=== PATIENT | female | born 1935 | race Caucasian/White ===

== ENCOUNTER 2018-03-14 14:54 | Emergency (ER) | payer OTHER ==
--- NOTE | 2018-03-14 15:56 | RAD REPORT ---
EXAM DESCRIPTION: CT - CTHCSPWOC - 03/14/2018 3:42 pm CLINICAL HISTORY: Trauma, head and neck injury. SMASH INJURY COMPARISON: HEAD BRAIN W O CONTRAST dated 07/18/2014 TECHNIQUE: Axial 5 mm thick images of the head were obtained. Axial 2 mm thick images of the cervical spine were obtained with sagittal and coronal reconstruction images generated and reviewed. All CT scans are performed using dose optimization technique as appropriate and may include automated exposure control or mA/KV adjustment according to patient size. FINDINGS: CT HEAD WITHOUT CONTRAST: No acute hemorrhage, hydrocephalus or extra-axial collection is identified.No areas of brain edema or midline shift. Opacification of the sphenoid sinus and posterior ethmoid air cells noted compatible with chronic sin usitis.Significant opacification of the left maxillary antrum is also seen.The calvarium is intact. P osterior scalp hematoma. CT CERVICAL SPINE WITHOUT CONTRAST: No fracture or subluxation.Prominent hypertrophy at the C1-C2 articulation noted. Multilevel spondylo sis is present of the cervical spine with degenerative anterolisthesis of 3 mm at C2-3 and 4 mm noted at C3-4. Disc thinning with prominent osteophytosis in the lower cervical levels also seen.No prever tebral soft tissues swelling is identified. IMPRESSION: No acute intracranial or cervical spine findings. Significant cervical degenerative changes present. Moderate multifocal paranasal sinus opacification.
--- NOTE | 2018-03-14 16:11 | EDPHYS ---
Physician Documentation [facility] Name: Luz Hirsch Age: 83 yrs Sex: Female : 1935 Arrival Date: 03/14/2018 Time: 15:02 Bed 5 Private MD: ED Emanuel Carlos HPI: 03/14 15:30 This 83 yrs old Female presents to ER via Ambulatory with complaints of Fall snw Injury. 15:30 Details of fall: The patient fell from an upright position, while walking. Onset: The snw symptoms/episode began/occurred suddenly, just prior to arrival. Associated injuries: The patient sustained injury to the head, abrasion, contusion. Severity of symptoms: At their worst the symptoms were mild, moderate. The patient has experienced similar episodes in the past, multiple times. It is unknown whether or not the patient has recently seen a physician, sees Dr. Ho. Denies pain, nausea, vomiting. Historical: - Allergies: 15:06 No Known Allergies; hj - Home Meds: 15:06 tramadol 50 mg Oral tab 1 tab daily [Active]; carvedilol 6.25 mg oral tab 1 tab 2 times hj per day [Active]; levothyroxine 50 mcg tab 1 tab once daily [Active]; irbesartan 300 mg oral tab 1 tab once daily [Active]; amlodipine 5 mg tab 1 tab once daily [Active]; Osteo Bi-Flex 250-200 mg oral tab [Active]; 15:06 aspirin 81 mg Oral chew 1 tab every other day [Active]; hj - PMHx: 15:06 Hypertension; Hypothyroidism; hj - PSHx: 15:06 Left knee replacement; Appendectomy; Cholecystectomy; Tonsillectomy; hj - Immunization history:: Adult Immunizations up to date. - Social history:: Smoking status: Patient/guardian denies using tobacco, Patient/guardian denies using alcohol. - Immunization history: Last tetanus immunization: unknown. - Ebola Screening: : Patient negative for fever greater than or equal to 101.5 degrees Fahrenheit, and additional compatible Ebola Virus Disease symptoms Patient denies exposure to infectious person Patient denies travel to an Ebola-affected area in the 21 days before illness onset. ROS: 15:29 Constitutional: Negative for fever, chills, and weight loss, Eyes: Negative for injury, snw pain, redness, and discharge, ENT: Negative for injury, pain, and discharge, Neck: Negative for injury, pain, and swelling, Cardiovascular: Negative for chest pain, palpitations, and edema, Respiratory: Negative for shortness of breath, cough, wheezing, and pleuritic chest pain, Abdomen/GI: Negative for abdominal pain, nausea, vomiting, diarrhea, and constipation, Back: Negative for injury and pain, : Negative for injury, bleeding, discharge, and swelling, MS/Extremity: Negative for injury and deformity, Skin: Negative for injury, rash, and discoloration. 15:29 Neuro: Positive for mechanical fall/over curb. Struck occiput on concrete, no LOC, denies N/V. Exam: 15:27 Constitutional: This is a well developed, well nourished patient who is awake, alert, snw and in no acute distress. Head/Face: Normocephalic, large hematoma to left-central occiput, GCS 15 Eyes: Pupils equal round and reactive to light, extra-ocular motions intact. Lids and lashes normal. Conjunctiva and sclera are non-icteric and not injected. Cornea within normal limits. Periorbital areas with no swelling, redness, or edema. ENT: Nares patent. No nasal discharge, no septal abnormalities noted. Tympanic membranes are normal and external auditory canals are clear. Oropharynx with no redness, swelling, or masses, exudates, or evidence of obstruction, uvula midline. Mucous membranes moist. Neck: Trachea midline, no thyromegaly or masses palpated, and no cervical lymphadenopathy. Supple, full range of motion without nuchal rigidity, or vertebral point tenderness. No Meningismus. Chest/axilla: Normal chest wall appearance and motion. Nontender with no deformity. No lesions are appreciated. Cardiovascular: Regular rate and rhythm with a normal S1 and S2. No gallops, murmurs, or rubs. Normal PMI, no JVD. No pulse deficits. Respiratory: Lungs have equal breath sounds bilaterally, clear to auscultation and percussion. No rales, rhonchi or wheezes noted. No increased work of breathing, no retractions or nasal flaring. Abdomen/GI: Soft, non-tender, with normal bowel sounds. No distension or tympany. No guarding or rebound. No evidence of tenderness throughout. Back: No spinal tenderness. No costovertebral tenderness. Full range of motion. MS/ Extremity: Pulses equal, no cyanosis. Neurovascular intact. Full, normal range of motion. Neuro: Awake and alert, GCS 15, oriented to person, place, time, and situation. Cranial nerves II-XII grossly intact. Motor strength 5/5 in all extremities. Sensory grossly intact. Cerebellar exam normal. Normal gait. Psych: Awake, alert, with orientation to person, place and time. Behavior, mood, and affect are within normal limits. 15:27 Skin: Appearance: normal except for affected area, injury, abrasion(s), very small abrasion noted, of the right antecubital area. Vital Signs: 15:06 BP 166 / 71; Pulse 82; Resp 18; Temp 97.9(O); Pulse Ox 98% on R/A; Weight 68.04 kg; hj Height 5 ft. 4 in. (162.56 cm); Pain 0/10; 15:06 Body Mass Index 25.75 (68.04 kg, 162.56 cm) [place] Coma Score: 15:06 Eye Response: spontaneous(4). Verbal Response: oriented(5). Motor Response: obeys commands(6). Total: 15. Trauma Score (Adult): 15:06 Eye Response: spontaneous(1); Verbal Response: oriented(1); Motor Response: obeys hj commands(2); Systolic BP: > 89 mm Hg(4); Respiratory Rate: 10 to 29 per min(4); [place] Score: 15; Trauma Score: 12 MDM: 15:21 Patient medically screened. snw 16:11 Data reviewed: vital signs, nurses notes. Data interpreted: Pulse oximetry: on room air snw is 98 %. Interpretation: normal. Counseling: I had a detailed discussion with the patient and/or guardian regarding: the historical points, exam findings, and any diagnostic results supporting the discharge/admit diagnosis, the presence of at least one elevated blood pressure reading (>120/80) during this emergency department visit, radiology results, the need for outpatient follow up, to return to the emergency department if symptoms worsen or persist or if there are any questions or concerns that arise at home. Special discussion: Based on the patient's history, exam and DX evaluation, there is no indication for emergent intervention or inpatient TX. It is understood by the patient/guardian that if the SXs persist or worsen they need to return immediately for re-evaluation. Based on the history and exam findings, there is no indication for further emergent testing or inpatient evaluation. I discussed with the patient/guardian the need to see the primary care provider for further evaluation of the symptoms. 03/14 15:27 Order name: CT Head C Spine; Complete Time: 16:03 snw Administered Medications: No medications were administered Disposition: 03/15 06:47 Co-signature as Attending Physician, Emanuel Damico MD I agree with the assessment and bridgette plan of care. Disposition: 03/14/18 16:11 Discharged to Home. Impression: Fall on same level from slipping, tripping and stumbling, Superficial injury of head. - Condition is Stable. - Discharge Instructions: Head Injury, Adult, Hematoma, Fall Prevention and Home Safety. - Medication Reconciliation Form, Thank You Letter, Antibiotic Education, Prescription Opioid Use form. - Follow up: Private Physician; When: 2 - 3 days; Reason: Recheck today's complaints, Continuance of care, Re-evaluation by your physician. Follow up: Emergency Department; When: As needed; Reason: Worsening of condition. Signatures: Dispatcher [employer] EDMS Emanuel Damico MD MD cha Therrien, Shelly, MECHANICAL ENGINEERING MANAGER-C MECHANICAL ENGINEERING MANAGER-Csnw Mckenzie Clark, RN RN pt Robert Hernandez RN Gricelda Ruelas RN RN jl7 Corrections: (The following items were deleted from the chart) 03/14 15:20 15:06 Home Meds: aspirin 81 mg Oral chew 1 tab once daily; [facility] 15:35 15:32 Ebola Screening: Ebola risk identified: pt pt 16:19 16:11 03/14/2018 16:11 Discharged to Home. Impression: Fall on same level from jl7 slipping, tripping and stumbling; Superficial injury of head. Condition is Stable. Forms are Medication Reconciliation Form, Thank You Letter, Antibiotic Education, Prescription Opioid Use. Follow up: Private Physician; When: 2 - 3 days; Reason: Recheck today's complaints, Continuance of care, Re-evaluation by your physician. Follow up: Emergency Department; When: As needed; Reason: Worsening of condition. snw
--- NOTE | 2018-03-14 16:11 | ER ---
Nurse's Notes [facility] Name: Luz Hirsch Age: 83 yrs Sex: Female : 1935 Arrival Date: 03/14/2018 Time: 15:02 Bed 5 Private MD: Diagnosis: Fall on same level from slipping, tripping and stumbling;Superficial injury of head Presentation: 03/14 15:02 Presenting complaint: Patient states: i fell today, around 30- 40 mins [employer] and hit my head, denies LOC, denies headache and blurry vision;. Transition of care: patient was not received from another setting of care. Onset of symptoms was March 14, 2018. Risk Assessment: Do you want to hurt yourself or someone else? Patient reports no desire to harm self or others. Initial Sepsis Screen: Does the patient meet any 2 criteria? No. Patient's initial sepsis screen is negative. Does the patient have a suspected source of infection? No. Patient's initial sepsis screen is negative. Care prior to arrival: None. 15:02 Method Of Arrival: Ambulatory 15:02 Acuity: LUKAS 4 15:07 Mechanism of Injury: Fall. Trauma event details: Injury occurred in the [place] [facility], Injury occurred: in a public building. Injury occurred: March 14, 2018 Injury occurred at: 14:30. Triage Assessment: 15:07 General: Appears in no apparent distress. uncomfortable, Behavior is calm, cooperative, hj appropriate for age. Pain: Denies pain. Trauma Activation: Not Applicable Physician: ED Physician; Name: ; Notified At: ; Arrived At: Physician: General Surgeon; Name: ; Notified At: ; Arrived At: Physician: Radiology; Name: ; Notified At: ; Arrived At: Physician: Respiratory; Name: ; Notified At: ; Arrived At: Physician: Lab; Name: ; Notified At: ; Arrived At: Historical: - Allergies: 15: No Known Allergies; - Home Meds: 15:06 tramadol 50 mg Oral tab 1 tab daily [Active]; carvedilol 6.25 mg oral tab 1 tab 2 times hj per day [Active]; levothyroxine 50 mcg tab 1 tab once daily [Active]; irbesartan 300 mg oral tab 1 tab once daily [Active]; amlodipine 5 mg tab 1 tab once daily [Active]; Osteo Bi-Flex 250-200 mg oral tab [Active]; 15:06 aspirin 81 mg Oral chew 1 tab every other day [Active]; hj - PMHx: 15:06 Hypertension; Hypothyroidism; hj - PSHx: 15:06 Left knee replacement; Appendectomy; Cholecystectomy; Tonsillectomy; hj - Immunization history:: Adult Immunizations up to date. - Social history:: Smoking status: Patient/guardian denies using tobacco, Patient/guardian denies using alcohol. - Immunization history: Last tetanus immunization: unknown. - Ebola Screening: : Patient negative for fever greater than or equal to 101.5 degrees Fahrenheit, and additional compatible Ebola Virus Disease symptoms Patient denies exposure to infectious person Patient denies travel to an Ebola-affected area in the 21 days before illness onset. Screenin:36 Abuse screen: Denies threats or abuse. Denies injuries from another. Nutritional jl7 screening: No deficits noted. Tuberculosis screening: No symptoms or risk factors identified. Fall Risk Fall in past 12 months (25 points). Total Mckenna Fall Scale indicates Low Risk Score (25-44 pts). Fall prevention measures have been instituted. Side Rails Up X 2 Placed close to Nursing Station Frequent Obs/Assesments occuring Family Present and informed to notify staff if they need to leave bedside As available Patient and Family Educated on Fall Prevention Program and strategies. Primary Survey: 15:06 A: Airway: patent, No supplemental oxygen in use on arrival. Oral cavity: clear, gag hj reflex present, Trachea midline. Breathing/Chest: Respiratory pattern: regular, Respiratory effort: spontaneous, unlabored, Breath sounds: clear, Chest inspection: symmetrical rise and fall of the chest. Circulation: Cardiac rhythm: Heart tones present. Pulses: palpable right radial artery and left radial artery. Skin color: pink, Skin temperature: warm, dry. Disability Alert. 15:30 Reassessment Breathing/Chest Respiratory pattern Regular Respiratory effort Spontaneous jl7 Unlabored Chest inspection Symmetrical. Secondary Survey: 15:30 HEENT: No deficits noted. Gastrointestinal: No deficits noted. : No deficits noted. jl7 Musculoskeletal: No deficits noted. Injury Description: Abrasion sustained to right parietal area. Assessment: 15:34 General: Appears in no apparent distress. comfortable, Behavior is calm, cooperative, jl7 appropriate for age. Pain: Denies pain. Neuro: Level of Consciousness is awake, alert, obeys commands, Oriented to person, place, time, situation. Cardiovascular: Patient's skin is warm and dry. Respiratory: Airway is patent Respiratory effort is even, unlabored, Respiratory pattern is regular, symmetrical. GI: No signs and/or symptoms were reported involving the gastrointestinal system. : No signs and/or symptoms were reported regarding the genitourinary system. EENT: No signs and/or symptoms were reported regarding the EENT system. Derm: Skin is pink, warm \T\ dry. Musculoskeletal: No signs and/or symptoms reported regarding the musculoskeletal system. Injury Description: Abrasion sustained to right parietal area. Vital Signs: 15:06 BP 166 / 71; Pulse 82; Resp 18; Temp 97.9(O); Pulse Ox 98% on R/A; Weight 68.04 kg; hj Height 5 ft. 4 in. (162.56 cm); Pain 0/10; 15:06 Body Mass Index 25.75 (68.04 kg, 162.56 cm) hj [place] Coma Score: 15:06 Eye Response: spontaneous(4). Verbal Response: oriented(5). Motor Response: obeys commands(6). Total: 15. Trauma Score (Adult): 15:06 Eye Response: spontaneous(1); Verbal Response: oriented(1); Motor Response: obeys commands(2); Systolic BP: > 89 mm Hg(4); Respiratory Rate: 10 to 29 per min(4); Arturo Score: 15; Trauma Score: 12 ED Course: 15:02 Patient arrived in ED. hj 15:03 Triage completed. hj 15:07 Arm band placed on right wrist. hj 15:20 Antonina Gambino FNP-C [facility]. snw 15:20 Emanuel Damico MD is Attending Physician. snw 15:31 Gricelda Lewis RN is Primary Nurse. jl7 15:[address] nj 15:36 Patient has correct armband on for positive identification. Bed in low position. Call jl7 light in reach. Side rails up X2. Pulse ox on. NIBP on. Warm blanket given. 15:37 Patient maintains SpO2 saturation greater than 95% on room air. Thermoregulation: warm jl7 blanket given to patient. 15:43 CT Head C Spine In Process Unspecified. EDMS 16:19 No provider procedures requiring assistance completed. Patient did not have IV access jl7 during this emergency room visit. Administered Medications: No medications were administered Intake: 16:18 PO: 0ml; Total: 0ml. jl7 Output: 16:18 Urine: 0ml; Total: 0ml. jl7 Outcome: 16:11 Discharge ordered by MD. ernst 16:18 Discharged to home ambulatory, with family. jl7 16:18 Condition: good 16:18 Patient's length of stay was not longer than 2 hours. 16:19 Discharge instructions given to patient, family, Instructed on discharge instructions, jl7 follow up and referral plans. Demonstrated understanding of instructions, follow-up care. 16:19 Patient left the ED. jl7 Signatures: Dispatcher [employer] EDMS Antonina Gambino, PRESS CLIPPINGS CUTTER AND PASTER-C PRESS CLIPPINGS CUTTER AND PASTER-Csnw Mckenzie Clark, RN RN pt Robert Heranndez RN RN hj Jordan, Nathan nj Leal, Jahala RN RN jl7 Corrections: (The following items were deleted from the chart) 15:09 15:06 68.04 kg; Height 5 ft. 4 in.; BMI: 25.7; Pain 0/10; hj hj 15:11 15:06 Pulse 82bpm; Resp 18bpm; Pulse Ox 98% RA; Temp 97.9F Oral; 68.04 kg; Height 5 ft. hj 4 in.; BMI: 25.7; Pain 0/10; hj 15:20 15:06 Home Meds: aspirin 81 mg Oral chew 1 tab once daily; hj hj 15:35 15:32 Ebola Screening: Ebola risk identified: pt pt
== END 2018-03-14 16:19 | disposition home or self-care (01) ==
LOC: ER 14:54
DX: S00.90XA Unspecified superficial injury of unspecified part of head, initial encounter (principal); W18.39XA Other fall on same level, initial encounter; Y93.01 Activity, walking, marching and hiking; Y92.89 Other specified places as the place of occurrence of the external cause; Z79.82 Long term (current) use of aspirin; I10 Essential (primary) hypertension; E03.9 Hypothyroidism, unspecified
CPT/HCPCS: 70450; 72125; 99284

== ENCOUNTER 2022-09-28 11:15 | Inpatient (IN) | payer OTHER ==
--- OUTSIDE RECORDS SUMMARY | 2022-09-28 11:33 | XMS REPORT | Continuity of Care Document ---
:1935 Author Organization [facility] t Address [address] [place] [address] Dr. Coulter [address] [place] [id number] Care Team Providers Name Role Phone Scott Ho Attending Clinician Unavailable Problems This patient has no known problems. Allergies, Adverse Reactions, Alerts This patient has no known allergies or adverse reactions. Medications This patient has no known medications. Procedures This patient has no known procedures. Encounters Start End Encounter Admission Attending Care Care Encounter Source Date/Time Date/Time Type Type Clinicians Facility Department ID 2022-06-04 Outpatient GRAYSON Ho [facility] [id number] Common 14:00:03 Scott [id number] [facility] Results This patient has no known results.
--- NOTE | 2022-09-28 12:13 | RAD REPORT ---
EXAM DESCRIPTION: RAD - Chest Single View - 09/28/2022 12:05 pm CLINICAL HISTORY: weaknes COMPARISON: Two view chest 06/29/2019 TECHNIQUE: AP portable chest image was obtained 09/28/2022 12:05 pm . FINDINGS: Pronounced right hemidiaphragm elevation again noted. Interstitial pattern not clearly dif ferent from comparison. No failure or volume overload suspected. Posterior right lung base assessment is limited. Heart and vasculature are normal. No measurable pleural effusion and no pneumothorax. No acute bony a bnormality seen. No acute aortic findings suspected. IMPRESSION: Limited study without acute cardiopulmonary finding
[2022-09-28 12:14] LABS: Hematocrit 37.2 % (36.0-45.0); Lymphocytes % 12.5 % (15.3-44.8); MCV 91.9 fL (80-100); MPV 7.3 fL (7.6-11.3); RBC Red Blood Cell Count 4.05 M/uL (3.86-4.86)
[2022-09-28 12:22] LABS: Albumin 3.6 g/dL (3.4-5.0); Bilirubin Total 0.3 mg/dL (0.2-1.0); Magnesium 2.1 mg/dL (1.6-2.4); Potassium 4.8 mmol/L (3.5-5.1); Protein, Total 7.6 g/dL (6.4-8.2)
[2022-09-28 13:14] LABS: Urine Blood Negative (Negative); Urine Glucose Negative (Negative); Urine Protein Negative (Negative); Urine Specific Gravity 1.015 (1.005-1.030); Urine pH 6.5 (5.0-7.0)
[2022-09-28 13:22] LABS: Urine Bacteria <20 /HPF (<20); Urine Mucus Slight /HPF (None Seen); Urine RBC <5 /HPF (None Seen)
--- NOTE | 2022-09-28 14:01 | EDPHYS ---
Physician Documentation [facility] Name: Luz Hirsch Age: 87 yrs Sex: Female : 1935 Arrival Date: 09/28/2022 Time: 11:24 Bed 3 Private MD: ED Physician Fifi Collins HPI: 09/28 11:26 This 87 yrs old Female presents to ER via EMS with complaints of weakness. sd2 11:26 87-year-old female presents via EMS with chief complaint of weakness. She reports that sd2 she has had weakness and instability of her gait for years but that it worsened today. EMS reports that they were initially called for a lift assist. She was found on the ground at her assisted living facility but when they were able to get her up onto her feet she seemed to still be fairly unstable even with her walker. Therefore, they were able to talk her into coming in to be evaluated. States the patient also smelled of foul-smelling urine. Pt denies any pain. Reports she slid down onto her bottom and couldn't get back up. Denies head-hitting, LOC, lightheadedness or dizziness. Reports it just feels like her legs are unstable and give out from underneath her. States she can tell when these episodes are about to occur as well. 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 Historical: - Allergies: 12:17 No Known Allergies; ko1 - PMHx: 12:17 Hypertension; Hypothyroidism; ko1 - Immunization history:: Adult Immunizations up to date. - Social history:: Smoking status: Patient denies any tobacco usage or history of. ROS: 11:26 Constitutional: Negative for fever, chills, and weight loss, Eyes: Negative for injury, sd2 pain, redness, and discharge, Cardiovascular: Negative for chest pain, palpitations, and edema, Respiratory: Negative for shortness of breath, cough, wheezing. Abdomen/GI: Negative for abdominal pain, nausea, vomiting, diarrhea. : Negative for dysuria, urinary frequency, hesitancy, urgency and hematuria. MS/Extremity: Negative for injury and deformity, Skin: Negative for injury, rash, and discoloration, Neuro: Negative for headache, numbness and tingling. Exam: 11:26 Constitutional: This is a well developed, well nourished patient who is awake, alert, sd2 and in no acute distress. Head/Face: Normocephalic, atraumatic. Eyes: EOMI, normal conjunctiva bilaterally Chest/axilla: Normal chest wall appearance and motion. Nontender with no deformity. Cardiovascular: Regular rate and rhythm with a normal S1 and S2. No gallops, murmurs, or rubs. 2+ distal pulses. Respiratory: Lungs have equal breath sounds bilaterally, clear to auscultation and percussion. No rales, rhonchi or wheezes noted. No increased work of breathing, no retractions or nasal flaring. Abdomen/GI: Soft, non-tender, with normal bowel sounds. No guarding or rebound. No evidence of tenderness throughout. Skin: Warm, dry with normal turgor. Normal color with no rashes, no lesions, and no evidence of cellulitis. MS/ Extremity: Pulses equal, no cyanosis. Neurovascular intact. Full, normal range of motion. Ambulatory without difficulty. Psych: Awake, alert, with orientation to person, place and time. Behavior, mood, and affect are within normal limits. 12:01 ECG was reviewed by the Attending Physician. NSR, rate 63, no STEMI criteria sd2 Vital Signs: 11:29 BP 144 / 76 LA Supine (auto/reg); Pulse 68; Resp 16; Temp 98.1(O); Pulse Ox 97% on R/A; ko1 11:29 BP 131 / 84 LA Standing (auto/reg); Pulse 67; Pulse Ox 98% on R/A; ko1 11:29 BP 139 / 76 LA Sitting (auto/reg); Pulse 68; Pulse Ox 98% on R/A; ko1 12:30 BP 168 / 70; Pulse 67; Pulse Ox 99% on R/A; ko1 13:30 BP 138 / 61; Pulse 69; Pulse Ox 98% on R/A; ko1 14:30 BP 148 / 71; Pulse 71; Pulse Ox 99% on R/A; ko1 15:00 BP 160 / 75; Pulse 73; Pulse Ox 98% ; ko1 18:50 BP 165 / 78; Pulse 74; Pulse Ox 99% ; ko1 MDM: 11:25 Patient medically screened. sd2 11:26 Differential Diagnosis Dehydration, electrolyte abnormality, UTI, PNA, anemia among sd2 others. Data reviewed: vital signs, nurses notes, EMS record. 13:56 Data reviewed: lab test result(s), EKG, radiologic studies. sd2 13:58 Counseling: I had a detailed discussion with the patient and/or guardian regarding: the sd2 historical points, exam findings, and any diagnostic results supporting the discharge/admit diagnosis, lab results, radiology results, the need for further work-up and treatment in the hospital. ED course: Labs and imaging reviewed. COnsistent with UTI. Rocephin given. Discussed case with Dr. Ho, patient's PCP, who requests a straight cath urine sample be sent additionally. Pt is very unstable and unable to ambulate on own or with a walker and lives in the independent area of her facility. Will admit for further management at this time.. 09/28 11:26 Order name: CBC with Diff; Complete Time: 12:24 sd2 09/28 11:26 Order name: CMP; Complete Time: 12:24 sd2 09/28 11:26 Order name: Magnesium; Complete Time: 12:24 sd2 09/28 11:26 Order name: Troponin High Sensitivity; Complete Time: 12:24 sd2 09/28 11:26 Order name: BNP; Complete Time: 12:24 sd2 09/28 11:26 Order name: Procalcitonin; Complete Time: 12:55 sd2 09/28 11:26 Order name: Urine Microscopic Only; Complete Time: 13:43 sd2 09/28 13:14 Order name: Urine Dipstick-Ancillary; Complete Time: 13:43 EDNV 09/28 13:25 Order name: Urine Culture EDNV 09/28 14:12 Order name: Basic Metabolic Panel EDNV 09/28 14:12 Order name: Basic Metabolic Panel EDNV 09/28 14:12 Order name: CBC with Automated Diff EDMS 09/28 14:12 Order name: CBC with Automated Diff EDMS 09/28 18:39 Order name: SARS RAPID cp 09/28 11:26 Order name: EKG - Nurse/Tech; Complete Time: 11:58 sd2 09/28 11:26 Order name: XRAY Chest (1 view); Complete Time: 12:24 sd2 09/28 11:26 Order name: Urine Dipstick-Ancillary (obtain specimen); Complete Time: 13:06 sd2 09/28 11:26 Order name: Orthostatics; Complete Time: 11:29 sd2 09/28 14:12 Order name: Heart Healthy EDMS 09/28 19:11 Order name: SARS-COV-2 Antigen Rapid EDMS Administered Medications: 14:09 Drug: Rocephin (cefTRIAXone) 1 grams Route: IV; Rate: bolus; Site: right antecubital; ko1 Disposition Summary: 09/28/22 14:00 Hospitalization Ordered Hospitalization Status: Inpatient Admission sd2 Provider: Scott Ho sd2 Location: Telemetry/MedSurg (Inpatient) sd2 Condition: Stable sd2 Problem: new sd2 Symptoms: are unchanged sd2 Bed/Room Type: Standard ia2 Room Assignment: 210(09/28/22 18:17) ap3 Diagnosis - Muscle weakness (generalized) sd2 - UTI/ Urinary tract infection, site not specified sd2 Forms: - Medication Reconciliation Form sd2 - SBAR form sd2 Signatures: Dispatcher [employer] EDMS Loreta Meraz RN RN ap3 Fifi Collins MD MD sd2 Do Rose RN RN ko1 Corrections: (The following items were deleted from the chart) 11:31 11:26 87-year-old female presents via EMS with chief complaint of weakness. She reports sd2 that she has had weakness and instability of her gait for years but that it worsened today. EMS reports that they were initially called for a lift assist. She was found on the ground at her assisted living facility but when they were able to get her up onto her feet she seemed to still be fairly unstable even with her walker. Therefore, they were able to talk her into coming in to be evaluated. States the patient also smelled of foul-smelling urine. Pt denies any pain. Reports she slid down onto her bottom and couldn't get back up. Denies head-hitting, LOC, lightheadedness or dizziness. Reports it just feels like her legs are unstable and give out from underneath her. States she can tell when these episodes are about to occur as well. . sd2 18:17 14:00 sd2 ap3 19:07 13:57 Straight Cath ordered. sd2 tw5
--- NOTE | 2022-09-28 14:01 | ER ---
Nurse's Notes [facility] Name: Luz Hirsch Age: 87 yrs Sex: Female : 1935 Arrival Date: 09/28/2022 Time: 11:24 Bed 3 Private MD: Diagnosis: Muscle weakness (generalized);UTI/ Urinary tract infection, site not specified Presentation: 09/28 11:25 Chief complaint: EMS states: patient was found on the floor at the assisted living ko1 ([facility]) this morning. EMS was called for a lift assist, exam revealed no injuries, however when getting the patient up she complained of dizziness. VS were stable blood sugar was 129. Employees at [facility] states she has been slightly confused at times over the past 24 hours. Coronavirus screen: At this time, the client does not indicate any symptoms associated with coronavirus-19. Ebola Screen: No symptoms or risks identified at this time. Initial Sepsis Screen: Does the patient meet any 2 criteria? No. Patient's initial sepsis screen is negative. Does the patient have a suspected source of infection? No. Patient's initial sepsis screen is negative. Risk Assessment: Do you want to hurt yourself or someone else? Patient reports no desire to harm self or others. Onset of symptoms was September 28, 2022. 11:25 Method Of Arrival: EMS: [facility] ko1 11:25 Acuity: LUKAS 4 ko1 Triage Assessment: 12:17 General: Appears in no apparent distress. comfortable, Behavior is calm, cooperative, ko1 appropriate for age. Pain: Denies pain. Historical: - Allergies: 12:17 No Known Allergies; ko1 - PMHx: 12:17 Hypertension; Hypothyroidism; ko1 - Immunization history:: Adult Immunizations up to date. - Social history:: Smoking status: Patient denies any tobacco usage or history of. Screenin:30 [facility] ED Fall Risk Assessment (Adult) History of falling in the last 3 months, ko1 including since admission Yes- single mechanical fall (1 pt) Confusion or Disorientation No (0 pts) Intoxicated or Sedated No (0 pts) Impaired Gait Yes (1 pt) Mobility Assist Device Used Yes (1 pt) Altered Elimination No (0 pt) Score/Fall Risk Level 3 or more points = High Risk Oriented to surroundings, Maintained a safe environment, Educated pt \T\ family on fall prevention, incl call for assistance when getting out of bed, Assessed \T\ reinforced patient's understanding of fall precautions, Provided non-skid footwear, Hourly rounding (assess needs \T\ fall precautionary measures) done, Used ambulatory aids as needed (educated on \T\ assisted with), Used gait belt as appropriate Implemented a Fall Risk Plan of Care, Apply high fall risk patient identification: yellow non skid footwear/ fall signage, Remained w/in arm's length of patient and in sight while toileting, Offered frequent toileting (1:1 observation), Remained with patient while ambulating, Utilized family, sitter, or virtual seed mill superintendent as indicated. Abuse screen: Denies threats or abuse. Denies injuries from another. Nutritional screening: No deficits noted. Tuberculosis screening: No symptoms or risk factors identified. Assessment: 11:30 General: Appears in no apparent distress. Pain: Denies pain. Neuro: No deficits noted. ko1 Cardiovascular: Reports lightheadedness. Respiratory: No deficits noted. GI: No deficits noted. : No signs and/or symptoms were reported regarding the genitourinary system. EENT: No deficits noted. Derm: No deficits noted. Musculoskeletal: No deficits noted. Vital Signs: 11:29 BP 144 / 76 LA Supine (auto/reg); Pulse 68; Resp 16; Temp 98.1(O); Pulse Ox 97% on R/A; ko1 11:29 BP 131 / 84 LA Standing (auto/reg); Pulse 67; Pulse Ox 98% on R/A; ko1 11:29 BP 139 / 76 LA Sitting (auto/reg); Pulse 68; Pulse Ox 98% on R/A; ko1 12:30 BP 168 / 70; Pulse 67; Pulse Ox 99% on R/A; ko1 13:30 BP 138 / 61; Pulse 69; Pulse Ox 98% on R/A; ko1 14:30 BP 148 / 71; Pulse 71; Pulse Ox 99% on R/A; ko1 15:00 BP 160 / 75; Pulse 73; Pulse Ox 98% ; ko1 18:50 BP 165 / 78; Pulse 74; Pulse Ox 99% ; ko1 ED Course: 11:24 Patient arrived in ED. sp 11:25 Fifi Collins MD is Attending Physician. sd2 11:29 Do Rose, RN is Primary Nurse. ko1 11:30 Inserted saline lock: 20 gauge in right antecubital area, using aseptic technique. ko1 Blood collected. 11:30 Patient has correct armband on for positive identification. Fall risk band placed. ko1 Placed in gown. Bed in low position. Call light in reach. Side rails up X2. Adult w/ patient. Client placed on continuous cardiac and pulse oximetry monitoring. NIBP monitoring applied. tin container straightener on. Warm blanket given. 11:48 BNP Sent. ko1 11:48 Troponin High Sensitivity Sent. ko1 11:48 Procalcitonin Sent. ko1 11:48 Magnesium Sent. ko1 11:48 CMP Sent. ko1 11:48 CBC with Diff Sent. ko1 12:07 XRAY Chest (1 view) In Process Unspecified. EDMS 12:17 Triage completed. ko1 12:17 Arm band placed on right wrist. ko1 13:06 Urine Microscopic Only Sent. ko1 13:59 Scott Ho MD is Hospitalizing Provider. sd2 18:51 No provider procedures requiring assistance completed. Patient admitted, IV remains in ko1 place. 18:52 SARS RAPID Sent. ko1 19:06 Primary Nurse role handed off by Do Rose, ANASTACIO tw5 19:06 Debbi Georges is Primary Nurse. tw5 19:08 Urine Culture Sent. tw5 Administered Medications: 14:09 Drug: Rocephin (cefTRIAXone) 1 grams Route: IV; Rate: bolus; Site: right antecubital; ko1 Medication: 11:30 VIS not applicable for this client. ko1 Intake: 15:00 PO: 240ml (Water); Total: 240ml. ko1 18:50 PO: 360ml (Water); Total: 600ml. ko1 Output: 15:00 Urine: 350ml (Voided); Stool: 1 (Loose Stool) ; Total: 350ml. ko1 18:50 Urine: 500ml (Voided); Total: 850ml. ko1 Outcome: 14:00 Decision to Hospitalize by Provider. sd2 20:21 Patient left the ED. ll3 Signatures: Dispatcher [employer] EDNC Shirley Castano Tiffany tw5 Caty Jones RN RN ll3 Fifi Collins MD MD sd2 Do Rose RN RN ko1 Corrections: (The following items were deleted from the chart) 12:43 11:29 BP 139 / 76 Sitting Auto L Arm Regular; Pulse 18bpm; Pulse Ox 98% RA; ko1 ko1
[2022-09-28] MEDS ORDERED: ONDANSETRON 4 MG/2 ML VIAL IV PRN (14:08)
[2022-09-28] MEDS ORDERED: ACETAMINOPHEN 500 MG TAB PO PRN (14:08)
[2022-09-28] MEDS ORDERED: CEFTRIAXONE 1000 MG/VIAL ONE (14:10)
[2022-09-28 19:11] LABS: SARS-CoV-2 Antigen Rapid Res Negative (Negative)
[2022-09-28] MEDS: CEFTRIAXONE 1,000 MG in NA CHLORIDE 0.9% 50 ML IVPB SCH (22:00)
[2022-09-28 22:11] VITALS: BMI 26.8
[2022-09-29 06:21] LABS: Absolute Lymphocytes (CBC) 2.1 K/uL (0.7-4.9); Hematocrit 36.7 % (36.0-45.0); Lymphocytes % 16.7 % (15.3-44.8); MCV 90.7 fL (80-100); MPV 7.2 fL (7.6-11.3); RBC Red Blood Cell Count 4.05 M/uL (3.86-4.86)
[2022-09-29 06:44] LABS: Potassium 4.3 mmol/L (3.5-5.1)
[2022-09-29] MEDS: CEFTRIAXONE 1,000 MG in NA CHLORIDE 0.9% 50 ML IVPB SCH ×2 (08:06→21:38)
--- NOTE | 2022-09-29 12:56 | P.SSS ---
Patient History Date of Service: 09/29/22 Reason for admission: FREQUENT FALLS. History of Present Illness: HERRERA IS 87 YARS OLD LADY WITH HTN, HYPOTHYROIDISM, WHO HAS BEEN FALLING A LOT LATELY. SHE HAS BEEN TOLD SHE HAS UTI BUT I AM NOT SURE THE SPECIMEN WAS NOT A CATH SPECIMEN. SHE HAS NO UTI SYMPTOMS. Allergies No Known Allergies Allergy (Verified 09/28/22 20:16) Home Medications: Carvedilol [Coreg] 25 mg PO BID 09/29/22 Levothyroxine Sodium [Levothyroxine] 50 mcg PO DAILY 09/29/22 Spironolactone 50 mg PO DAILY 09/29/22 - Past Medical/Surgical History Has patient received pneumonia vaccine in the past: Yes Diabetic: No -: HTN -: hypothyroidism - Social History Smoking Status: Never smoker Alcohol use: No CD- Drugs: No Caffeine use: Yes Place of Residence[facility] Review of Systems 10-point ROS is otherwise unremarkable General: Weakness Physical Examination - Vital Signs Temperature: 97.2 F Blood Pressure: 152/73 Pulse: 77 Respirations: 14 Pulse Ox (%): 95 - Physical Exam General: Alert, In no apparent distress HEENT: Atraumatic, PERRLA, Mucous membr. moist/pink, EOMI, Sclerae nonicteric Neck: Supple, 2+ carotid pulse no bruit, No LAD, Without JVD or thyroid abnormality Respiratory: Clear to auscultation bilaterally, Normal air movement Cardiovascular: Regular rate/rhythm, Normal S1 S2 Gastrointestinal: Normal bowel sounds, No tenderness Musculoskeletal: No tenderness Integumentary: No rashes Neurological: Normal gait, Normal speech, Normal strength at 5/5 x4 extr, Normal tone, Normal affect Lymphatics: No axilla or inguinal lymphadenopathy - Diagnosis (Problem(s)) (1) Frequent falls Current Visit: Yes Status: Chronic Plan: MRI BRAIN,AND SPINE. THI SCAN BE JUST FROM AGING. CHECK FOR PARKINSON'S MAY HAVE SOME FACIAL FEATURES. CONSULT DR. MARSHALL. - Disposition Disposition: ROUTINE DISCHARGE
--- NOTE | 2022-09-29 16:30 | RAD REPORT ---
EXAM DESCRIPTION: MRI - Brain Wo Cont - 09/29/2022 4:05 pm CLINICAL HISTORY: confusion COMPARISON: No comparisons TECHNIQUE: Sagittal T1-weighted images were obtained along with PD/heavily T2-weighted and T2-FLAIR images. Axial DWI and ADC mapping sequences were also obtained along with coronal heavily T2-weighted images were obtained. FINDINGS: No intracranial hemorrhage, mass or acute infarction. There is no edema or shift of midlin e structures. No extra-axial fluid collections. Signal voids are seen as a normal finding in the lorie r intracranial vessels. Moderate chronic small vessel ischemic changes. Cerebral atrophy. Mastoid air cells and paranasal sinuses are clear. IMPRESSION: No acute intracranial abnormality. Specifically, no evidence of acute infarct. Moderate chronic small vessel ischemic changes.
--- NOTE | 2022-09-29 18:11 | RAD REPORT ---
EXAM DESCRIPTION: MRI - Lumbar Spine Cordelia Gates - 09/29/2022 4:18 pm CLINICAL HISTORY: Evaluate for post fall, trauma COMPARISON: None. TECHNIQUE: Sagittal T1-weighted, T2-weighted and T2-STIR weighted sequences were obtained. Axial T1 -weighted and heavily T2-weighted sequenceswere obtained through the lumbar disc levels. FINDINGS: Compression fracture at T11 which appears acute with less than 20% loss of height anterior ly. No other fractures are appreciated. The marrow signal is otherwise within normal limits. Grade 1 anterolisthesis of L4 on L5. Conus is normal with no clumping or thickening of the cauda equina. T12-L1 level: No significant findings. L1-2 level: No significant findings. L2-3 level: Broad-based disc bulge with moderate disc height loss and ligamentum flavum thickening an d facet degenerative changes results in mild central spinal stenosis, moderate right, and moderate le ft neural foraminal narrowing. L3-4 level: Broad-based disc bulge with ligamentum flavum facet hypertrophy results in mild to modera te central spinal stenosis, moderate right neural foraminal narrowing, and mild left neural foraminal narrowing. L4-5 level: Grade 1 anterolisthesis of L4 on L5 with disc height loss, broad-based disc bulge, and li gamentum flavum facet hypertrophy results in severe central spinal stenosis. Neural foraminal narrowi ng is moderate on the left and mild on the right. L5-S1 level: Disc height loss with broad-based disc bulge and ligamentum flavum facet hypertrophy res ults in moderate bilateral neural foraminal narrowing. No central spinal stenosis. IMPRESSION: 1. Acute T11 compression fracture with less than 20% loss of height anteriorly. No bony retropulsion. 2. Multilevel degenerate disc disease. Of note, there is severe central spinal stenosis at L4-5 secon stiven to a combination of factors including spondylolisthesis.
[2022-09-29] MEDS: carvediloL 25 MG TAB PO SCH (21:35)
--- NOTE | 2022-09-29 22:04 | CON ---
Reason For Consultation: Consultation called by Dr. Ho because of the possibility of Parkinson di sease. History Of Present Illness: Ms. Hirsch is an 87-year-old right-handed patient who is admi tted to [facility] after a fall where her legs apparently gave out and she has had unsteady gait and multiple falls for a few years. She was at home and called EMS for assistance to be lifted, but when she was found, she was found on the ground of her assisted living facility and was unable t o get back up. She appeared very unstable in her walker, which she typically uses to get around and she was persuaded to come to [facility]. It is also noted that she smelt of foul urine sugg estive of a urinary tract infection. She denies any head trauma with loss of consciousness and denies any dizziness. She does feel that her legs would suddenly give out. Past Medical History: Hypertension and hypothyroidism. Allergies: NO KNOWN DRUG ALLERGIES. Social History: She resides at [facility] and denies any alcohol, tobacco, or IV d rug use. Family History: Noncontributory. Review of Systems: She has arthritic pain in the knee. She had a left knee replacement and is currently being evaluated for replacement of the right knee as well. Some mild myalgias. No rash. No psychiatric complaints . No active genitourinary or gastrointestinal issues. Physical Examination: Vital Signs: Blood pressure 151/96, pulse 77 to 94, respiratory rate 14 to 16, temperature 97.2, and oxygen saturation 96% on room air. Weight 151 pounds, height 5 feet 3 inches, BMI 26.8. General: Ms. Hirsch is resting comfortably in bed. HEENT: She appears to be normocephalic and atraumatic. She did say in a previous fall, she hit the back or head, but that was a year ago. Sclerae anicteric. Oropharynx is moist. Neck: Supple. Chest: Clear. Heart: Regular. Extremities: No significant edema or cyanosis. Neurological: She has no obvious cranial nerve deficits. She moves the arms and legs equally well, at least 4/5 strength proximally and distally symmetrically. Sensory exam decreased to light touch a nd temperature in the upper and lower extremities. Reflexes are depressed in upper and lower extremi ties. Coordination is intact. She did ambulate 300 feet with a front wheel walker and standby moriah tance. She did stand and pivot transfers to bed with standby assistance. Her sit to supine and supi ne to sit was done with modified independence. Transfers were done with standby assistance. Laboratory Studies: White blood cell count today 12.6, yesterday 15.7. She had 80.8% neutrophils, n ow 72.9%. Chemistries: Sodium 131, potassium 4.3, chloride 101, carbon dioxide 21, BUN 26, creatini ne 1.29 and on admission it was 1.67 consistent with dehydration. She had normal liver function stud ies. Calcium 9.2, magnesium 2.1. Procalcitonin less than 0.05. Urinalysis showed positive esterase , trace nitrite, 10 to 20 white blood cells. COVID testing was negative. She had a chest x-ray on a dmission that identified no acute cardiopulmonary processes; however, there was a pronounced right he midiaphragm elevation again noted. This was compared to a study done on 06/29/2019. There was no fl uid overload pattern to suggest a heart failure. She had a brain MRI done, which showed no intracran ial hemorrhage, mass, or acute infarction. There was moderate chronic small vessel ischemic disease with cerebral edema. A lumbar spine MRI was the most significant study finding showing a compression fracture of T11 that appears acute with less than 20% loss of height. The marrow signal is otherwis e normal. She had a grade 1 anterolisthesis of L4 and L5. At the L4-5 level, there was broad-based disk bulging and ligamentum flavum hypertrophy resulting in severe central canal stenosis and neural foraminal narrowing was moderate on the left and mild on the right. At L5-S1, she had disk height lo ss, broad based disk bulge and ligamentum flavum facet hypertrophy. There was moderate bilateral guerline ral foraminal narrowing without central canal stenosis. Assessment: Ms. 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 She is also at risk for loss o f control of bowel and bladder functioning given the central canal stenosis. She does not have any e vidence of Parkinson disease. There is no ratcheting or cogwheeling. She does not have a masklike f evon. She does not have a festinating gait. She did note that she had her balance loss has been prog ressive, perhaps 6 years. Plan: 1.She may have outpatient physical therapy. 2.Traction therapy may be helpful in the lower spine region. 3.Her risk of worsening is significant given the degree of stenosis at L4-5 therefore, she should be evaluated by a neurosurgeon or spine surgeon for potential decompression. 4.She is to ambulate with a walker at all times. 5.If discharged, she may follow up with Dr. Ramos in a month. CONSUELO/BRITANY Voice ID: [id number] Report ID: [id number]
[2022-09-30] MEDS ORDERED: LEVOTHYROXINE SOD 0.05 MG TABLET PO SCH (06:30)
[2022-09-30] MEDS: CEFTRIAXONE 1,000 MG in NA CHLORIDE 0.9% 50 ML IVPB SCH (08:54)
[2022-09-30] MEDS: carvediloL 25 MG TAB PO SCH (08:55)
[2022-09-30] MEDS ORDERED: SPIRONOLACTONE 25 MG TABLET PO SCH (09:00)
[2022-09-30 09:56] VITALS: O2SAT 98
[2022-09-30 10:14] LABS: Specific Gravity 1.014 (1.005-1.030); Urine Bacteria None Seen /HPF (<20); Urine Bilirubin NEGATIVE (Negative); Urine Blood Negative (Negative); Urine Clarity Clear (Clear); Urine Color Light-Yellow (Yellow); Urine Glucose NEGATIVE (Negative); Urine Protein NEGATIVE (Negative); Urine Urobilinogen Normal (Normal); Urine pH 5.5 (5.0-7.0)
[2022-09-30 12:22] VITALS: BP 138/73; TEMP 97.3
--- NOTE | 2022-09-30 16:07 | EKG ---
Test Date: 2022-09-28 Test Time: 11:55:32 Rag Cutting Machine Operator: JUAREZ MEASUREMENT RESULTS: Intervals: Rate: 63 DC: 188 QRSD: 78 QT: 410 QTc: 419 Arnold: P: 71 DC: 188 QRS: 11 T: 106 INTERPRETIVE STATEMENTS: Normal sinus rhythm Nonspecific ST abnormality Abnormal QRS-T angle, consider primary T wave abnormality Abnormal ECG Compared to ECG 07/19/1997 13:55:00 ST (T wave) deviation now present T-wave abnormality now present Electronically Signed On 09-30-22 16:05:21 PLASTIC TILE SETTER by Troy Louis
== END 2022-09-30 14:29 | disposition home health service (06) | DRG 552 ==
LOC: ER 11:15 → ERHOLD 17:50 → 2ND 19:09
PROVIDERS: ADMIT Internal Medicine; ATTEND Internal Medicine
DX: M48.061 Spinal stenosis, lumbar region without neurogenic claudication (principal); N39.0 Urinary tract infection, site not specified; I10 Essential (primary) hypertension; E03.9 Hypothyroidism, unspecified; Z91.81 History of falling; Z79.890 Hormone replacement therapy; Z96.652 Presence of left artificial knee joint; Z79.899 Other long term (current) drug therapy; Z20.822 Contact with and (suspected) exposure to COVID-19; W18.30XA Fall on same level, unspecified, initial encounter; Y92.099 Unspecified place in other non-institutional residence as the place of occurrence of the external cause; Y93.9 Activity, unspecified
CPT/HCPCS: 36415; 70551; 71045; 72148; 80048; 80053; 81001; 81003; 81015; 83735; 83880; 84145; 84484; 85025; 87077; 87086; 87088; 87186; 87811; 93005; 96374; 97116; 97161; 97530; 99284

== ENCOUNTER 2023-04-12 22:56 | Inpatient (IN) | payer OTHER ==
--- OUTSIDE RECORDS SUMMARY | 2023-04-12 22:58 | XMS REPORT | Continuity of Care Document ---
:1935 Author Organization [facility] t Address [address] [place] [address] [place] [id number] Care Team Providers Name Role Phone Scott Ho Attending Clinician Unavailable Problems This patient has no known problems. Allergies, Adverse Reactions, Alerts This patient has no known allergies or adverse reactions. Medications This patient has no known medications. Procedures This patient has no known procedures. Encounters Start End Encounter Admission Attending Care Care Encounter Source Date/Time Date/Time Type Type Clinicians Facility Department ID 2023-01-28 Outpatient GRAYSON Ho [facility] [id number] Common 15:56:01 Scott [id number] [facility] 2022-06-04 Outpatient GRAYSON Ho [facility] [id number] Common 14:00:03 Scott [id number] [facility] Results This patient has no known results.
[2023-04-12] MEDS ORDERED: NA CHLORIDE 0.9% 0 ML ONE (23:12)
[2023-04-12 23:18] LABS: Protime INR 1.05
[2023-04-12 23:19] LABS: Absolute Lymphocytes (CBC) 2.6 K/uL (0.7-4.9); Hematocrit 32.8 % (36.0-45.0); Lymphocytes % 16.4 % (15.3-44.8); MCV 97.1 fL (80-100); MPV 6.7 fL (7.6-11.3); RBC Red Blood Cell Count 3.38 M/uL (3.86-4.86)
[2023-04-12] MEDS ORDERED: NA CHLORIDE 0.9% 500 ML ONE (23:19)
[2023-04-12 23:35] LABS: Specific Gravity 1.015 (1.005-1.030); Urine Bacteria None Seen /HPF (<20); Urine Bilirubin NEGATIVE (Negative); Urine Blood 1+ (Negative); Urine Clarity Turbid (Clear); Urine Color Yellow (Yellow); Urine Glucose NEGATIVE (Negative); Urine Mucus Slight /HPF (None Seen); Urine Protein NEGATIVE (Negative); Urine Urobilinogen Normal (Normal); Urine pH 5.5 (5.0-7.0)
[2023-04-12 23:37] LABS: Albumin 3.2 g/dL (3.4-5.0); Bilirubin Total 0.4 mg/dL (0.2-1.0); Potassium 4.4 mEq/L (3.5-5.1); Troponin High Sensitivity 9.1 pg/mL (<58.9)
--- NOTE | 2023-04-13 00:34 | EDPHYS ---
Physician Documentation [facility] Name: Luz Hirsch Age: 88 yrs Sex: Female : 1935 Arrival Date: 04/12/2023 Time: 22:56 Bed 7 Private MD: ED Physician Jacky Montana HPI: 04/12 23:08 This 88 yrs old Female presents to ER via EMS with complaints of Generalized weakness sp3 and altered mental status reported. 23:08 88-year-old female with history of hypertension, hypothyroidism, insomnia presents to [facility] the ED via EMS for chief complaints as reported by the [facility] of altered mental status/confusion and generalized weakness. Patient has no complaints and is oriented and does not want to be here. [facility] reported that patient was generally weak and therefore activated EMS. For EMS, vital signs have been normal and patient is afebrile. Patient has a history of UTIs in the past.. Historical: - Allergies: 23:04 No Known Allergies; jb4 - Home Meds: 23:04 carvedilol 6.25 mg Oral tab 1 tab 2 times per day [Active]; levothyroxine 50 mcg tab 1 jb4 tab once daily [Active]; memantine oral [Active]; Spironolactone Oral [Active]; - PMHx: 23:04 Hypertension; Hypothyroidism; insomnia; jb4 - PSHx: 23:04 Cardiac stents; jb4 ROS: 23:10 Eyes: Negative for injury, pain, redness, and discharge, ENT: Negative for injury, sp3 pain, and discharge, Neck: Negative for injury, pain, and swelling, Cardiovascular: Negative for chest pain, palpitations, and edema, Respiratory: Negative for shortness of breath, cough, wheezing, and pleuritic chest pain, Abdomen/GI: Negative for abdominal pain, nausea, vomiting, diarrhea, and constipation, Back: Negative for injury and pain, MS/Extremity: Negative for injury and deformity, Skin: Negative for injury, rash, and discoloration, Neuro: Negative for headache, weakness, numbness, tingling, and seizure. 23:10 All other systems are negative. Exam: 23:10 Constitutional: This is a well developed, well nourished patient who is awake, alert, sp3 and in no acute distress. Head/Face: Normocephalic, atraumatic. Eyes: Pupils equal round and reactive to light, extra-ocular motions intact. Lids and lashes normal. Conjunctiva and sclera are non-icteric and not injected. Cornea within normal limits. Periorbital areas with no swelling, redness, or edema. ENT: Nares patent. No nasal discharge, no septal abnormalities noted. External auditory canals are clear. Oropharynx with no redness, swelling, or masses, exudates, or evidence of obstruction, uvula midline. Mucous membranes moist. Neck: Trachea midline, no thyromegaly or masses palpated, and no cervical lymphadenopathy. Supple, full range of motion without nuchal rigidity, or vertebral point tenderness. No Meningismus. Chest/axilla: Normal chest wall appearance and motion. Nontender with no deformity. No lesions are appreciated. Cardiovascular: Regular rate and rhythm with a normal S1 and S2. No gallops, murmurs, or rubs. Normal PMI, no JVD. No pulse deficits. Respiratory: Lungs have equal breath sounds bilaterally, clear to auscultation and percussion. No rales, rhonchi or wheezes noted. No increased work of breathing, no retractions or nasal flaring. Abdomen/GI: Soft, non-tender, with normal bowel sounds. No distension or tympany. No guarding or rebound. No evidence of tenderness throughout. Back: No spinal tenderness. No costovertebral tenderness. Full range of motion. Skin: Warm, dry with normal turgor. Normal color with no rashes, no lesions, and no evidence of cellulitis. MS/ Extremity: Pulses equal, no cyanosis. Neurovascular intact. Full, normal range of motion. Neuro: Awake and alert, GCS 15, oriented to person, place, time, and situation. Cranial nerves II-XII grossly intact. Motor strength 5/5 in all extremities. Sensory grossly intact. Cerebellar exam normal. Normal gait. Psych: Awake, alert, with orientation to person, place and time. Behavior, mood, and affect are within normal limits. Vital Signs: 22:58 BP 170 / 83; Pulse 67; Resp 20; Temp 98.5(O); Pulse Ox 97% on R/A; Weight 70.5 kg (M); jb4 Pain 0/10; 23:18 BP 170 / 77; Pulse 69; Resp 18; Pulse Ox 98% on R/A; mb9 04/13 00:29 BP 168 / 77; Pulse 68; Resp 22; Pulse Ox 96% on R/A; jb4 01:37 BP 170 / 79; Pulse 67; Resp 13; Pulse Ox 98% on R/A; jb4 04/12 22:58 Pain Scale: Adult jb4 MDM: 04/12 22:58 Patient medically screened. sp3 23:10 Data reviewed: vital signs, nurses notes, EMS record, old medical records, lab test sp3 result(s), EKG, radiologic studies. ED course: 88-year-old female with reported altered mental status and generalized weakness. Will obtain broad work-up which will include CT scan of the head, chest x-ray, urine analysis, laboratory values, EKG and general observation and normal saline bolus. If work-up is negative, we will safely discharge patient home. I am not highly suspicious for CVA, ICH, sepsis, shock, or any other critical findings at this time. Differential includes UTI, pneumonia, dehydration, electrolyte abnormality, among others. Disposition pending work-up and patient course.. 04/13 00:32 ED course: Patient with UTI along with prerenal azotemia and hypobulimic hyponatremia. sp3 Sodium 125. Urine osmolality and serum osmolality added. Will admit to Dr. Ho primary care physician.. 00:35 ED course: Discussed with Dr. Ho at 12:34 AM will be seeing patient in the morning.. sp3 04/12 22:59 Order name: CBC with Diff; Complete Time: 00:27 sp3 04/12 22:59 Order name: CMP; Complete Time: 00:27 sp3 04/12 22:59 Order name: Lactate w/ 2H reflex if indic.; Complete Time: 00:27 sp3 04/12 22:59 Order name: Protime (+inr); Complete Time: 00:27 sp3 04/12 22:59 Order name: Urinalysis w/ reflexes; Complete Time: 00:27 sp3 04/12 22:59 Order name: Troponin High Sensitivity; Complete Time: 00:27 sp3 04/12 23:41 Order name: Urine Culture EDMS 04/13 00:29 Order name: Blood Culture Adult (2) sp3 04/13 00:29 Order name: Urine Creatinine sp3 04/13 00:29 Order name: Urine Osmolality sp3 04/13 00:29 Order name: Osmolality, Serum sp3 04/12 22:59 Order name: Chest Single View XRAY sp3 04/12 22:59 Order name: CT Head Brain wo Cont sp3 04/12 22:59 Order name: EKG; Complete Time: 23:00 sp3 04/12 22:59 Order name: Cardiac monitoring; Complete Time: 23:01 sp3 04/12 22:59 Order name: EKG - Nurse/Tech; Complete Time: 23:23 sp3 04/12 22:59 Order name: IV Saline Lock - Large Bore; Complete Time: 23:00 sp3 04/12 22:59 Order name: Labs collected and sent; Complete Time: 23:00 3 04/12 22:59 Order name: O2 Sat Monitoring; Complete Time: 23:00 3 04/12 22:59 Order name: Vital Signs; Complete Time: 23:00 3 04/12 23:18 Order name: Straight Cath - Urine; Complete Time: 23:18 mb9 Administered Medications: 04/12 23:10 Drug: NS 0.9% IV 500 ml Route: IV; Rate: bolus; Site: right hand; [facility] 04/13 01:10 Drug: Cefepime IVPB 1 grams Route: IVPB; Rate: 200 ml/hr; Infused Over: 30 mins; Site: [facility] right antecubital; Disposition Summary: 04/13/23 00:33 Hospitalization Ordered Hospitalization Status: Inpatient Admission sp3 Provider: Scott Ho sp3 Location: [facility] [place] [facility] ([facility] sp3 Condition: Stable sp3 Problem: an acute exacerbation sp3 Symptoms: have worsened sp3 Bed/Room Type: Standard sp3 Room Assignment: 212(04/13/23 01:40) mw Diagnosis - Urinary tract infection, dehydration, hyponatremia sp3 Forms: - Medication Reconciliation Form sp3 - SBAR form sp3 Signatures: Dispatcher [employer] Patience Batres RN RN mw Bryson, James, RN RN jb4 Jacky Montana MD MD sp3 Dory Tinoco RN RN mb9 Corrections: (The following items were deleted from the chart) 01:40 00:33 sp3 mw
--- NOTE | 2023-04-13 00:34 | ER ---
Nurse's Notes [facility] Name: Luz Hirsch Age: 88 yrs Sex: Female : 1935 Arrival Date: 04/12/2023 Time: 22:56 Bed 7 Private MD: Diagnosis: Urinary tract infection, dehydration, hyponatremia Presentation: 04/12 22:58 Chief complaint: EMS states: residential staff called for altered mental status. Per jb4 staff pt reported not feeling well and having low urine out put with a foul odor. Coronavirus screen: At this time, the client does not indicate any symptoms associated with coronavirus-19. Ebola Screen: No symptoms or risks identified at this time. Initial Sepsis Screen: Does the patient meet any 2 criteria? No. Patient's initial sepsis screen is negative. Does the patient have a suspected source of infection? No. Patient's initial sepsis screen is negative. Risk Assessment: Do you want to hurt yourself or someone else? Patient reports no desire to harm self or others. Onset of symptoms was April 12, 2023. Transition of care: patient was not received from another setting of care. 22:58 Method Of Arrival: EMS: [facility] jb4 22:58 Acuity: LUKAS 3 jb4 Triage Assessment: 23:04 General: Appears in no apparent distress. comfortable, Behavior is calm, cooperative, jb4 appropriate for age. Pain: Denies pain. EENT: No signs and/or symptoms were reported regarding the EENT system. Neuro: Level of Consciousness is awake, alert, obeys commands, Oriented to person, place, time, situation. Cardiovascular: Patient's skin is warm and dry. Respiratory: Airway is patent Respiratory effort is even, unlabored, Respiratory pattern is regular, symmetrical. GI: No signs and/or symptoms were reported involving the gastrointestinal system. : No signs and/or symptoms were reported regarding the genitourinary system. Derm: Skin is intact, Skin is pink, warm \T\ dry. Musculoskeletal: Circulation, motion, and sensation intact. Range of motion: intact in all extremities. Historical: - Allergies: 23:04 No Known Allergies; jb4 - Home Meds: 23:04 carvedilol 6.25 mg Oral tab 1 tab 2 times per day [Active]; levothyroxine 50 mcg tab 1 jb4 tab once daily [Active]; memantine oral [Active]; Spironolactone Oral [Active]; - PMHx: 23:04 Hypertension; Hypothyroidism; insomnia; jb4 - PSHx: 23:04 Cardiac stents; jb4 Screenin:07 [facility] ED Fall Risk Assessment (Adult) History of falling in the last 3 months, jb4 including since admission No falls in past 3 months (0 pts) Confusion or Disorientation No (0 pts) Score/Fall Risk Level 0 - 2 = Low Risk Oriented to surroundings, Maintained a safe environment. Abuse screen: Denies threats or abuse. Nutritional screening: No deficits noted. Tuberculosis screening: No symptoms or risk factors identified. Assessment: 23:07 Reassessment: see triage note. jb4 04/13 00:29 Reassessment: Patient appears in no apparent distress at this time. Patient and/or jb4 family updated on plan of care and expected duration. Pain level reassessed. Patient is alert, oriented x 3, equal unlabored respirations, skin warm/dry/pink. 01:37 Reassessment: Patient appears in no apparent distress at this time. Patient and/or jb4 family updated on plan of care and expected duration. Pain level reassessed. Patient is alert, oriented x 3, equal unlabored respirations, skin warm/dry/pink. Pt placed on bed grullon. Vital Signs: 04/12 22:58 BP 170 / 83; Pulse 67; Resp 20; Temp 98.5(O); Pulse Ox 97% on R/A; Weight 70.5 kg (M); jb4 Pain 0/10; 23:18 BP 170 / 77; Pulse 69; Resp 18; Pulse Ox 98% on R/A; mb9 18 00:29 BP 168 / 77; Pulse 68; Resp 22; Pulse Ox 96% on R/A; jb4 01:37 BP 170 / 79; Pulse 67; Resp 13; Pulse Ox 98% on R/A; jb4 04/12 22:58 Pain Scale: Adult jb4 ED Course: 04/12 22:58 Patient arrived in ED. jb4 22:58 Jacky Montana MD is Attending Physician. sp3 22:58 Arm band placed on. mb9 22:58 Placed in gown. Bed in low position. Call light in reach. Side rails up X 1. Client mb9 placed on continuous cardiac and pulse oximetry monitoring. NIBP monitoring applied. monitor technician on. 23:04 Triage completed. jb4 23:18 Troponin High Sensitivity Sent. mb9 23:18 CBC with Diff Sent. mb9 23:18 CMP Sent. mb9 23:18 Protime (+inr) Sent. mb9 23:18 Urinalysis w/ reflexes Sent. mb9 23:18 Straight cath inserted, using sterile technique, 16 Fr. Specimen obtained. Returned mb9 cloudy urine. Patient tolerated well. 23:22 Chest Single View XRAY In Process Unspecified. EDMS 23:33 No provider procedures requiring assistance completed. Maintain EMS IV. Dressing mb9 intact. Good blood return noted. Site clean \T\ dry. Gauge \T\ site: 20 g right hand. 23:59 CT Head Brain wo Cont In Process Unspecified. EDMS 04/13 00:29 Francisco Gifford, RN is Primary Nurse. jb4 00:33 Scott Ho MD is Hospitalizing Provider. sp3 02:16 Patient admitted, IV remains in place. jb4 Administered Medications: 04/12 23:10 Drug: NS 0.9% IV 500 ml Route: IV; Rate: bolus; Site: right hand; jb4 04/13 01:10 Drug: Cefepime IVPB 1 grams Route: IVPB; Rate: 200 ml/hr; Infused Over: 30 mins; Site: [facility] right antecubital; Medication: 04/12 22:58 VIS not applicable for this client. mb9 Outcome: 04/13 00:33 Decision to Hospitalize by Provider. sp3 02:15 Admitted to Med/surg accompanied by tech, via stretcher, room 212, with chart, Report jb4 called to ANASTACIO Martin 02:15 Condition: stable 02:15 Discharge instructions given to patient, family, Instructed on the need for admit, Demonstrated understanding of instructions. 02:16 Patient left the ED. jb4 Signatures: Dispatcher [employer] EDPR Francisco Gifford, RN RN jb4 Jacky Montana MD MD sp3 Dory Tinoco RN RN mb9
[2023-04-13] MEDS ORDERED: CEFEPIME 1 GM/VIAL ONE ×2 (01:15→08:20)
[2023-04-13] MEDS ORDERED: NA CHLORIDE 0.9% 100 ML ONE ×2 (01:15→09:43)
[2023-04-13] MEDS ORDERED: ACETAMINOPHEN 500 MG TAB PO PRN (02:28)
[2023-04-13] MEDS ORDERED: ONDANSETRON 4 MG/2 ML VIAL IV PRN (02:28)
[2023-04-13] MEDS: NA CHLORIDE 0.9% 1,000 ML IV SCH ×2 (02:39→21:58)
[2023-04-13 03:04] VITALS: BMI 28.4
[2023-04-13 04:34] LABS: Absolute Lymphocytes (CBC) 2.6 K/uL (0.7-4.9); Hematocrit 32.3 % (36.0-45.0); Lymphocytes % 16.9 % (15.3-44.8); MCV 97.6 fL (80-100); MPV 7.4 fL (7.6-11.3); RBC Red Blood Cell Count 3.31 M/uL (3.86-4.86)
[2023-04-13 04:40] LABS: Potassium 4.7 mEq/L (3.5-5.1)
[2023-04-13] MEDS: carvediloL 25 MG TAB PO SCH ×2 (08:12→20:54)
[2023-04-13] MEDS: ESCITALOPRAM 20 MG TAB PO SCH (08:12)
[2023-04-13] MEDS: LEVOTHYROXINE SOD 0.05 MG TABLET PO SCH (08:15)
[2023-04-13] MEDS ORDERED: HOME MED 1 EA UNK (Levothyroxine Sodium [Levothyroxine Sodium] 50 MCG Capsule) PO SCH (09:00)
[2023-04-13] MEDS ORDERED: SPIRONOLACTONE 25 MG TABLET PO SCH (09:00)
[2023-04-13] MEDS: CEFEPIME 1 GM in NA CHLORIDE 0.9% 100 ML IV SCH ×2 (09:48→20:54)
--- NOTE | 2023-04-13 11:04 | RAD REPORT ---
EXAM DESCRIPTION: RAD - Chest Single View - 04/12/2023 11:20 pm CLINICAL HISTORY: 88 years Female, Altered Mental Status COMPARISON: None. FINDINGS: Single portable AP view of the chest. External leads overlie the chest. Elevation of the r ight hemidiaphragm. Cardiac silhouette is not significantly enlarged given technique. No visualized c onsolidation. No pleural effusion or pneumothorax. Degenerative changes of the spine and shoulders. IMPRESSION: Elevation of the right hemidiaphragm. No acute radiographic abnormality. Electronically signed by: Savanah Araujo MD 04/12/2023 11:36 PM CDT Due to temporary technical issues with the PACS/Fluency reporting system, reports are being signed by the in house radiologists without review as a courtesy to insure prompt reporting. The interpreting radiologist is fully responsible for the content of the report.
--- NOTE | 2023-04-13 11:08 | RAD REPORT ---
EXAM DESCRIPTION: CT - Head Brain Wo Cont - 04/13/2023 12:26 am CLINICAL HISTORY: 88 years, Female, CONFUSED COMPARISON: 03/14/2018. FINDINGS: Multiple transaxial tomograms of the brain were obtained from the base of the skull to the vertex without contrast. 2-D multiplanar reformats and the coronal and sagittal plane were performed and reviewed. This exam was performed according to our departmental dose-optimization protocol, which includes auto mated exposure control, adjustment of the mA and/or kV according to patient size and/or use of iterat josephine reconstruction technique. Brain parenchyma demonstrate mild prominence of the sulci and gyri are corresponding to mild cerebral and cerebellar atrophy. There is minimal periventricular white matter changes of microvascular ische niki. There is no midline shift and/or mass effect. There is no evidence for acute intracranial hemorr kennedi. Lateral ventricles and cisterns displace normal appearance. No intra or extra axial fluid c ollections were seen. The calvarium is intact with no evidence for fracture. The visualized portions of the paranasal sinuses and orbits demonstrate to be clear. IMPRESSION: No acute intracranial hemorrhage identified. Mild brain atrophy with minimal periventricular white matter changes of microvascular ischemia. Electronically signed by: Garrett Willis MD 04/13/2023 12:16 AM CDT Due to temporary technical issues with the PACS/Fluency reporting system, reports are being signed by the in house radiologists without review as a courtesy to insure prompt reporting. The interpreting radiologist is fully responsible for the content of the report.
--- NOTE | 2023-04-13 12:16 | P.HP ---
Certification for Inpatient Patient admitted to: Inpatient With expected LOS: >2 Midnights Practitioner: I am a practitioner with admitting privileges, knowledge of patient current condition, hospital course, and medical plan of care. Services: Services provided to patient in accordance with Admission requirements found in Title 42 Section 412.3 of the Code of Federal Regulations Patient History Date of Service: 04/13/23 Reason for admission: CONFUSION, WEAKNESS History of Present Illness: HERRERA HAS MORE CONFUSION AND WEAKNESS. SHE HAS UTI PER ER TESTING. SHE FELL AT [facility]. SHE IS CONFUSED AT BASELINE. Allergies No Known Allergies Allergy (Verified 04/13/23 02:51) Home Medications: Carvedilol [Coreg] 25 mg PO BID 09/29/22 Levothyroxine Sodium 50 mcg PO DAILY 09/29/22 Spironolactone 50 mg PO DAILY 09/29/22 Escitalopram Oxalate 10 mg PO DAILY 04/13/23 Melatonin 3 mg PO BEDTIME 04/13/23 - Past Medical/Surgical History Has patient received pneumonia vaccine in the past: Yes Diabetic: No -: HTN -: hypothyroidism -: insomnia -: cardiac stents - Social History Smoking Status: Never smoker Alcohol use: No CD- Drugs: No Caffeine use: Yes Place of Residence: [facility]irement Review of Systems 10-point ROS is otherwise unremarkable General: Weakness Physical Examination - Vital Signs Temperature: 97.5 F Blood Pressure: 197/81 Pulse: 70 Respirations: 16 Pulse Ox (%): 97 - Physical Exam General: Oriented x3, Acute distress, Mild distress HEENT: Atraumatic, PERRLA, Mucous membr. moist/pink, EOMI, Sclerae nonicteric Neck: Supple, 2+ carotid pulse no bruit, No LAD, Without JVD or thyroid abnormality Respiratory: Clear to auscultation bilaterally, Normal air movement Cardiovascular: Regular rate/rhythm, Normal S1 S2 Gastrointestinal: Normal bowel sounds, No tenderness Musculoskeletal: No tenderness Integumentary: No rashes Neurological: Normal gait, Normal speech, Normal strength at 5/5 x4 extr, Normal tone, Normal affect Lymphatics: No axilla or inguinal lymphadenopathy - Studies Laboratory Data (last 24 hrs) 04/12/23 23:03: PT 11.5, INR 1.05 04/12/23 23:03: Sodium 125 L, Potassium 4.4, BUN 36 H, Creatinine 1.23 H, Glucose 111 H, Total Bilirubin 0.4, AST 14 L, ALT 23, Alkaline Phosphatase 58 04/12/23 23:03: WBC 15.80 H, Hgb 11.1 L, Hct 32.8 L, Plt Count 448 H Microbiology Data (last 24 hrs): 04/13/23 00:55 Blood - Blood Anaerobic Blood Culture - Final Assessment and Plan - Problems (Diagnosis) (1) UTI (urinary tract infection) Current Visit: Yes Status: Acute Plan: IV ABX. CEFEPIME. CULTURE PENDING CONSULT PT VERY WEAK. MAY BE ABLE TO GO TO ASSISTED LIVING. (2) Alzheimer disease Current Visit: Yes Status: Acute - Advance Directives Does patient have a Living Will: Yes Does patient have a Durable POA for Healthcare: Yes
[2023-04-13] MEDS: cloNIDine HCL 0.1 MG TAB PO SCH ×2 (16:30→20:54)
--- NOTE | 2023-04-13 20:38 | EKG ---
Test Date: 2023-04-12 Test Time: 23:26:56 Publication Specialist: DEVAUGHN MEASUREMENT RESULTS: Intervals: Rate: 68 RI: 178 QRSD: 84 QT: 420 QTc: 446 [place]: P: 72 RI: 178 QRS: 16 T: 61 INTERPRETIVE STATEMENTS: Normal sinus rhythm Normal ECG Compared to ECG 09/28/2022 11:55:32 ST (T wave) deviation no longer present T-wave abnormality no longer present Electronically Signed On 04-13-23 20:37:22 CDT by Gabino Cooney
[2023-04-13] MEDS: MELATONIN 3 MG TABLET PO SCH (20:53)
[2023-04-14 04:07] LABS: Absolute Lymphocytes (CBC) 2.2 K/uL (0.7-4.9); Hematocrit 32.2 % (36.0-45.0); Lymphocytes % 16.5 % (15.3-44.8); MCV 98.4 fL (80-100); MPV 6.7 fL (7.6-11.3); RBC Red Blood Cell Count 3.27 M/uL (3.86-4.86)
[2023-04-14 04:17] LABS: Potassium 4.3 mEq/L (3.5-5.1)
[2023-04-14] MEDS: cloNIDine HCL 0.1 MG TAB PO SCH ×3 (08:34→20:24)
[2023-04-14] MEDS: LEVOTHYROXINE SOD 0.05 MG TABLET PO SCH (08:34)
[2023-04-14] MEDS ORDERED: CEFEPIME 1 GM/VIAL ONE (08:34)
[2023-04-14] MEDS: carvediloL 25 MG TAB PO SCH ×2 (08:34→20:24)
[2023-04-14] MEDS: ESCITALOPRAM 20 MG TAB PO SCH (08:34)
[2023-04-14] MEDS: CEFEPIME 1 GM in NA CHLORIDE 0.9% 100 ML IV SCH ×2 (08:35→20:24)
[2023-04-14] MEDS ORDERED: NA CHLORIDE 0.9% 100 ML ONE (08:38)
[2023-04-14] MEDS: NA CHLORIDE 0.9% 1,000 ML IV SCH (17:44)
[2023-04-14] MEDS: MELATONIN 3 MG TABLET PO SCH (20:24)
--- NOTE | 2023-04-14 21:05 | P.PN ---
Subjective Date of Service: 04/14/23 Chief Complaint: CONFUSION, WEAKNESS Subjective: Improving SHE IS STABLE. WEAK. WE ARE WAITING FOR REHAB TEAM. NO NEW ISSUES. Review of Systems 10-point ROS is otherwise unremarkable General: Weakness, Malaise Physical Examination - Vital Signs Temperature: 98.2 F Blood Pressure: 155/82 Pulse: 60 Respirations: 16 Pulse Ox (%): 98 - Physical Exam General: Oriented x2, Cooperative, Mild distress HEENT: Atraumatic, PERRLA, EOMI Neck: Supple, JVD not distended Respiratory: Clear to auscultation bilaterally, Normal air movement Cardiovascular: Regular rate/rhythm, Normal S1 S2 Gastrointestinal: Normal bowel sounds, No tenderness Musculoskeletal: No tenderness Integumentary: No rashes Neurological: Normal speech, Normal tone, Normal affect Lymphatics: No axilla or inguinal lymphadenopathy - Studies Microbiology Data (last 24 hrs): 04/13/23 00:55 Blood - Blood Anaerobic Blood Culture - Final Medications List Reviewed: Yes Assessment And Plan - Current Problems (Diagnosis) (1) UTI (urinary tract infection) Current Visit: Yes Status: Acute Plan: IV ABX. CEFEPIME. CULTURE PENDING CONSULT PT VERY WEAK. MAY BE ABLE TO GO TO ASSISTED LIVING. (2) Alzheimer disease Current Visit: Yes Status: Acute (3) Hyponatremia Current Visit: Yes Status: Acute Plan: THIS IS FROM SPIRONOLACTONE. STOP IT AND CONT IV FLUIDS (4) Debilitated Current Visit: Yes Status: Chronic Plan: START OT AND PT. CONTINUE AT CI.
[2023-04-15] MEDS: LEVOTHYROXINE SOD 0.05 MG TABLET PO SCH (05:31)
[2023-04-15] MEDS: cloNIDine HCL 0.1 MG TAB PO SCH ×3 (08:21→20:17)
[2023-04-15] MEDS: ESCITALOPRAM 20 MG TAB PO SCH (08:21)
[2023-04-15] MEDS: ENOXAPARIN 40 MG/0.4 ML SQ SCH (08:21)
[2023-04-15] MEDS: carvediloL 25 MG TAB PO SCH ×2 (08:21→20:22)
[2023-04-15] MEDS: CEFEPIME 1 GM in NA CHLORIDE 0.9% 100 ML IV SCH ×2 (08:22→20:22)
[2023-04-15] MEDS: NA CHLORIDE 0.9% 1,000 ML IV SCH (12:35)
[2023-04-15] MEDS: HYDRALAZINE HCL 25 MG TABLET PO SCH ×2 (19:53→21:00)
[2023-04-15] MEDS: MELATONIN 3 MG TABLET PO SCH (20:17)
--- NOTE | 2023-04-15 20:54 | P.PN ---
Subjective Date of Service: 04/15/23 Chief Complaint: CONFUSION, WEAKNESS Subjective: Improving SHE IS STABLE. WEAK. WE ARE WAITING FOR REHAB TEAM. NO NEW ISSUES. STABLE WEAK NOT DOING MUCH WALKING YET. PT CONSULT AWAITED. Review of Systems 10-point ROS is otherwise unremarkable Physical Examination - Vital Signs Temperature: 97.9 F Blood Pressure: 171/72 Pulse: 69 Respirations: 22 Pulse Ox (%): 95 - Physical Exam General: Mild distress HEENT: Atraumatic, PERRLA, EOMI Neck: Supple, JVD not distended Respiratory: Clear to auscultation bilaterally, Normal air movement Cardiovascular: Regular rate/rhythm, Normal S1 S2 Gastrointestinal: Normal bowel sounds, No tenderness Musculoskeletal: No tenderness Integumentary: No rashes Neurological: Normal speech, Normal tone, Normal affect Lymphatics: No axilla or inguinal lymphadenopathy - Studies Microbiology Data (last 24 hrs): 04/12/23 23:16 Clean Catch Urine [place] Count - Final >100,000 CFU/ML. 04/12/23 23:16 Clean Catch Urine - Final Escherichia Coli 04/13/23 00:55 Blood - Blood Anaerobic Blood Culture - Final Medications List Reviewed: Yes Assessment And Plan - Current Problems (Diagnosis) (1) UTI (urinary tract infection) Current Visit: Yes Status: Acute Plan: IV ABX. CEFEPIME. CULTURE PENDING CONSULT PT VERY WEAK. MAY BE ABLE TO GO TO ASSISTED LIVING. E COLI SENSITIVE TO AUGMENTIN CHANGE ABX AT DC TO ORAL. (2) Alzheimer disease Current Visit: Yes Status: Acute (3) Hyponatremia Current Visit: Yes Status: Acute Plan: THIS IS FROM SPIRONOLACTONE. STOP IT AND CONT IV FLUIDS (4) Debilitated Current Visit: Yes Status: Chronic Plan: START OT AND PT. CONTINUE AT . NEEDS PT TO SNF.
[2023-04-16] MEDS: LEVOTHYROXINE SOD 0.05 MG TABLET PO SCH (05:36)
[2023-04-16 05:41] LABS: Absolute Lymphocytes (CBC) 1.9 K/uL (0.7-4.9); Hematocrit 32.9 % (36.0-45.0); Lymphocytes % 10.4 % (15.3-44.8); RBC Red Blood Cell Count 3.43 M/uL (3.86-4.86)
[2023-04-16 06:03] LABS: Potassium 4.6 mEq/L (3.5-5.1)
[2023-04-16] MEDS ORDERED: CEFEPIME 1 GM/VIAL ONE (07:42)
[2023-04-16] MEDS ORDERED: COSYNTROPIN 0.25 MG VIAL IV ONE (08:30)
--- NOTE | 2023-04-16 08:41 | RAD REPORT ---
EXAM DESCRIPTION: Zaina Single View04/16/2023 8:18 am CLINICAL HISTORY: Aspiration COMPARISON: April 12, 2023 FINDINGS: Chronic elevation right hemidiaphragm. Lucency right lung base The lungs appear clear of acute infiltrate. The heart is normal size. IMPRESSION: Lucency right lung base probably air within bowel abutting the diaphragm rather than helga e air. If the patient has clinical symptoms to suggest pneumoperitoneum then a decubitus film of the upper right abdomen would be recommended
[2023-04-16] MEDS: Meropenem 1,000 MG in NA CHLORIDE 0.9% 100 ML IV SCH ×2 (09:51→21:28)
[2023-04-16] MEDS: ENOXAPARIN 40 MG/0.4 ML SQ SCH (09:51)
[2023-04-16] MEDS: cloNIDine HCL 0.1 MG TAB PO SCH ×3 (12:12→21:32)
[2023-04-16] MEDS: HYDRALAZINE HCL 25 MG TABLET PO SCH ×3 (12:12→21:27)
[2023-04-16] MEDS: ESCITALOPRAM 20 MG TAB PO SCH (12:12)
[2023-04-16] MEDS: carvediloL 25 MG TAB PO SCH ×2 (12:12→21:27)
[2023-04-16] MEDS: WATER FOR INJ,STERILE 10 ML IM PRN (16:05)
[2023-04-16] MEDS: ZIPRASIDONE MESYLA 20 MG/VIAL IM PRN (16:06)
[2023-04-16] MEDS: MELATONIN 3 MG TABLET PO SCH (21:27)
--- NOTE | 2023-04-16 21:37 | P.PN ---
Subjective Date of Service: 04/16/23 Chief Complaint: WHEEZING TODAY Subjective: Worsening SHE IS STABLE. WEAK. WE ARE WAITING FOR REHAB TEAM. NO NEW ISSUES. STABLE WEAK NOT DOING MUCH WALKING YET. PT CONSULT AWAITED. SHE IS CONFUSED USUAL THIS AM I SEE HER WHEEZING. Review of Systems 10-point ROS is otherwise unremarkable General: Weakness Respiratory: Shortness of Breath Physical Examination - Vital Signs Temperature: 97.4 F Blood Pressure: 129/69 Pulse: 70 Respirations: 18 Pulse Ox (%): 99 - Physical Exam General: Oriented x1, Moderate distress HEENT: Atraumatic, PERRLA, EOMI Neck: Supple, JVD not distended Respiratory: Diminished, Rhonchi/gurgles Cardiovascular: Regular rate/rhythm, Normal S1 S2 Gastrointestinal: Normal bowel sounds, No tenderness Musculoskeletal: No tenderness Integumentary: No rashes Neurological: Normal speech, Normal tone, Normal affect Lymphatics: No axilla or inguinal lymphadenopathy - Studies Medications List Reviewed: Yes Assessment And Plan - Current Problems (Diagnosis) (1) UTI (urinary tract infection) Current Visit: Yes Status: Acute Plan: IV ABX. CEFEPIME. CULTURE PENDING CONSULT PT VERY WEAK. MAY BE ABLE TO GO TO ASSISTED LIVING. E COLI SENSITIVE TO AUGMENTIN CHANGE ABX AT DC TO ORAL. (2) Alzheimer disease Current Visit: Yes Status: Acute (3) Hyponatremia Current Visit: Yes Status: Acute Plan: THIS IS FROM SPIRONOLACTONE. STOP IT AND CONT IV FLUIDS U OSM IS HIGH S OSM IS HIGH U SOD IS HIGH. RESTRICT FLUID FOR NOW. ACTH STIM TEST IS NORMAL (4) Debilitated Current Visit: Yes Status: Chronic Plan: START OT AND PT. CONTINUE AT . NEEDS PT TO SNF. (5) Aspiration into airway Current Visit: Yes Status: Acute Plan: THIS IS POSSIBLE REASON FOR WHEEZING SHE HAS DEMENTIA. CXR NEG FOR PNEUMONIA CT WILL BE MORE ACCURATE BUT WILL AVOID FOR NOW ABDOMEN FINDINGS DO NOT CORRELATE TO CLINICAL FINDINGS. ABDOMEN IS NON ACUTE. CHANGE ABX TO [facility] DAILY
[2023-04-17 05:34] LABS: Absolute Lymphocytes (CBC) 1.5 K/uL (0.7-4.9)
[2023-04-17 05:44] LABS: Potassium 4.3 mEq/L (3.5-5.1)
[2023-04-17 05:47] LABS: Hematocrit 34.5 % (36.0-45.0); Lymphocytes % 9.1 % (15.3-44.8); MCV 96.4 fL (80-100); MPV 7.3 fL (7.6-11.3); RBC Red Blood Cell Count 3.57 M/uL (3.86-4.86)
[2023-04-17] MEDS: LEVOTHYROXINE SOD 0.05 MG TABLET PO SCH (06:13)
[2023-04-17] MEDS: NA CHLORIDE 0.9% 1,000 ML IV SCH ×2 (08:13→21:09)
[2023-04-17] MEDS: ESCITALOPRAM 20 MG TAB PO SCH (08:13)
[2023-04-17] MEDS: ENOXAPARIN 40 MG/0.4 ML SQ SCH (08:13)
[2023-04-17] MEDS: carvediloL 25 MG TAB PO SCH ×2 (08:13→21:07)
[2023-04-17] MEDS: cloNIDine HCL 0.1 MG TAB PO SCH ×3 (08:14→21:07)
[2023-04-17] MEDS: HYDRALAZINE HCL 25 MG TABLET PO SCH ×3 (08:14→21:08)
[2023-04-17] MEDS: Meropenem 1,000 MG in NA CHLORIDE 0.9% 100 ML IV SCH ×2 (08:15→21:08)
--- NOTE | 2023-04-17 11:15 | P.PN ---
Subjective Date of Service: 04/17/23 Chief Complaint: WHEEZING TODAY Subjective: No new changes SHE IS STABLE. WEAK. WE ARE WAITING FOR REHAB TEAM. NO NEW ISSUES. STABLE WEAK NOT DOING MUCH WALKING YET. PT CONSULT AWAITED. SHE IS CONFUSED USUAL THIS AM I SEE HER WHEEZING. LOT MORE SOMNOLENT. WEAK, FATIGUED. Review of Systems 10-point ROS is otherwise unremarkable General: Weakness, Malaise Physical Examination - Vital Signs Temperature: 97.6 F Blood Pressure: 154/69 Pulse: 73 Respirations: 15 Pulse Ox (%): 98 - Physical Exam General: Mild distress, Confused, Unresponsive (MOST OF THE TIME BUT WHEN I TOUCHED HER AND CALLED HER NAME, SHE OPENED EYES AND WENT BACK TO SLEEP SOON. ) HEENT: Atraumatic, PERRLA, EOMI Neck: Supple, JVD not distended Respiratory: Clear to auscultation bilaterally, Normal air movement Cardiovascular: Regular rate/rhythm, Normal S1 S2 Gastrointestinal: Normal bowel sounds, No tenderness Musculoskeletal: No tenderness Integumentary: No rashes Neurological: Other (UNRESPONSIVE ABOVE), Dementia Lymphatics: No axilla or inguinal lymphadenopathy - Studies Medications List Reviewed: Yes Assessment And Plan - Current Problems (Diagnosis) (1) UTI (urinary tract infection) Current Visit: Yes Status: Acute Plan: IV ABX. CEFEPIME. CULTURE PENDING CONSULT PT VERY WEAK. MAY BE ABLE TO GO TO ASSISTED LIVING. E COLI SENSITIVE TO AUGMENTIN CHANGE ABX AT DC TO ORAL. (2) Alzheimer disease Current Visit: Yes Status: Acute (3) Hyponatremia Current Visit: Yes Status: Acute Plan: I WILL REDO SODIUM TEST AFTER IV FLUIDS. CLINICALLY SHE IS HYPOVOLEMIC ACTH TEST IS NORMAL. IV NS MAY HELP WILL AVOID 3% SALINE FOR NOW GIVE ONE MORE DAY. NOT ABLE TO TAKE MUCH ORALLY. DNR. DISCUSSED WITH DAUGHTER SHE IS VERY CONTENT. (4) Debilitated Current Visit: Yes Status: Chronic Plan: START OT AND PT. CONTINUE AT CI. NEEDS PT TO SNF. (5) Aspiration into airway Current Visit: Yes Status: Acute Plan: THIS IS POSSIBLE REASON FOR WHEEZING SHE HAS DEMENTIA. CXR NEG FOR PNEUMONIA CT WILL BE MORE ACCURATE BUT WILL AVOID FOR NOW ABDOMEN FINDINGS DO NOT CORRELATE TO CLINICAL FINDINGS. ABDOMEN IS NON ACUTE. CHANGE ABX TO [facility] DAILY
[2023-04-17] MEDS: METHYLPREDNISOLONE 40 MG INJ IV SCH ×2 (11:22→16:44)
[2023-04-17 19:19] LABS: Potassium 4.7 mEq/L (3.5-5.1)
[2023-04-17] MEDS: MELATONIN 3 MG TABLET PO SCH (21:00)
[2023-04-17] MEDS ORDERED: NA CHLORIDE 3% 500 ML IV SCH (22:56)
[2023-04-18] MEDS: METHYLPREDNISOLONE 40 MG INJ IV SCH ×2 (01:28→05:31)
[2023-04-18] MEDS: NA CHLORIDE 3% 500 ML IV SCH ×2 (01:35→14:03)
[2023-04-18] MEDS: LEVOTHYROXINE SOD 0.05 MG TABLET PO SCH (05:27)
[2023-04-18 05:31] LABS: Absolute Lymphocytes (CBC) 0.7 K/uL (0.7-4.9); Hematocrit 33.4 % (36.0-45.0); Lymphocytes % 4.5 % (15.3-44.8); MCV 97.6 fL (80-100); MPV 7.2 fL (7.6-11.3); RBC Red Blood Cell Count 3.42 M/uL (3.86-4.86)
[2023-04-18 05:42] LABS: Potassium 4.6 mEq/L (3.5-5.1)
[2023-04-18] MEDS: carvediloL 25 MG TAB PO SCH ×2 (08:57→21:50)
[2023-04-18] MEDS: HYDRALAZINE HCL 25 MG TABLET PO SCH ×2 (08:57→14:00)
[2023-04-18] MEDS: Meropenem 1,000 MG in NA CHLORIDE 0.9% 100 ML IV SCH ×2 (08:57→21:50)
[2023-04-18] MEDS: ENOXAPARIN 40 MG/0.4 ML SQ SCH (08:57)
[2023-04-18] MEDS: cloNIDine HCL 0.1 MG TAB PO SCH ×2 (08:58→14:00)
[2023-04-18] MEDS: ESCITALOPRAM 20 MG TAB PO SCH (09:00)
[2023-04-18 09:58] LABS: Potassium 4.5 mEq/L (3.5-5.1)
[2023-04-18] MEDS: NA CHLORIDE 0.9% 1,000 ML IV SCH (11:00)
[2023-04-18 14:11] LABS: Potassium 4.9 mEq/L (3.5-5.1)
--- NOTE | 2023-04-18 15:13 | P.PN ---
Subjective Date of Service: 04/18/23 Chief Complaint: LOT BETTER Subjective: Improving SHE IS STABLE. SHE WAS SENT TO ICU FOR HYPERTONIC SALINE FOR HYPONATREMAI SHE IS FULLY AWAKE NOW AND ATE GOOD TODAY Review of Systems 10-point ROS is otherwise unremarkable General: Weakness Physical Examination - Vital Signs Temperature: 97.6 F Blood Pressure: 130/56 Pulse: 77 Respirations: 15 Pulse Ox (%): 100 - Physical Exam General: Oriented x1, Mild distress HEENT: Atraumatic, PERRLA, EOMI Neck: Supple, JVD not distended Respiratory: Clear to auscultation bilaterally, Normal air movement Cardiovascular: Regular rate/rhythm, Normal S1 S2 Gastrointestinal: Normal bowel sounds, No tenderness Musculoskeletal: No tenderness Integumentary: No rashes Neurological: Normal speech, Normal tone, Normal affect Lymphatics: No axilla or inguinal lymphadenopathy - Studies Microbiology Data (last 24 hrs): 04/13/23 00:55 Blood - Blood Aerobic Blood Culture - Final No growth in 5 days. 04/13/23 00:55 Blood - Blood Anaerobic Blood Culture - Final 04/13/23 00:40 Blood - Blood Aerobic Blood Culture - Final No growth in 5 days. 04/13/23 00:40 Blood - Blood Anaerobic Blood Culture - Final No growth in 5 days. Medications List Reviewed: Yes Assessment And Plan - Current Problems (Diagnosis) (1) UTI (urinary tract infection) Current Visit: Yes Status: Acute Plan: IV ABX. CEFEPIME. CULTURE PENDING CONSULT PT VERY WEAK. MAY BE ABLE TO GO TO ASSISTED LIVING. E COLI SENSITIVE TO AUGMENTIN CHANGE ABX AT DC TO ORAL. (2) Alzheimer disease Current Visit: Yes Status: Acute (3) Hyponatremia Current Visit: Yes Status: Acute Plan: IMPROVED FROM 117 TO 125 AFTER HYPERTONIC SALINE ETIOLOGY LOOKS LIKE MULTIFACTORIAL. OSM AND SODIUM SHOW SIADH PICTURE BUT NOW SHE SHOWS SIGNS OF DEHYDRATION ON LAB REPORTS. STOP 3% SALINE AND CHANGE TO NS. DAILY LAB. (4) Debilitated Current Visit: Yes Status: Chronic Plan: START OT AND PT. CONTINUE AT . NEEDS PT TO SNF. (5) Aspiration into airway Current Visit: Yes Status: Acute Plan: THIS IS POSSIBLE REASON FOR WHEEZING SHE HAS DEMENTIA. CXR NEG FOR PNEUMONIA CT WILL BE MORE ACCURATE BUT WILL AVOID FOR NOW ABDOMEN FINDINGS DO NOT CORRELATE TO CLINICAL FINDINGS. ABDOMEN IS NON ACUTE. CHANGE ABX TO [facility] DAILY (6) Dehydration Current Visit: Yes Status: Acute Plan: BUN CREAT RISING CHECK SONOGRAM CHECK PVR CONT IV FLUIDS. CLINICALLLY SHE IS MILDLY DEHYDRATED.
[2023-04-18] MEDS ORDERED: cloNIDine HCL 0.1 MG TAB PO SCH (15:17)
[2023-04-18] MEDS ORDERED: HYDRALAZINE HCL 25 MG TABLET PO SCH (15:17)
--- NOTE | 2023-04-18 16:31 | RAD REPORT ---
EXAM DESCRIPTION: RAD - Chest Single View - 04/18/2023 12:50 am CLINICAL HISTORY: 88 years Female, S/P PICC insertion COMPARISON: 04/12/2023 FINDINGS: Single portable AP supine view of the chest. Left upper extremity PICC line with the tip p rojecting over the lower SVC. Elevation of the right hemidiaphragm. No new consolidation. No definite pneumothorax within the limitations of supine technique. No acute osseous abnormality. IMPRESSION: Left upper extremity PICC line tip projecting over the lower SVC. Electronically signed by: Savanah Araujo MD 04/18/2023 1:11 AM CDT Due to temporary technical issues with the PACS/Fluency reporting system, reports are being signed by the in house radiologists without review as a courtesy to insure prompt reporting. The interpreting radiologist is fully responsible for the content of the report.
--- NOTE | 2023-04-18 19:37 | RAD REPORT ---
EXAM DESCRIPTION: US - Abdomen Exam Complete - 04/18/2023 7:25 pm CLINICAL HISTORY: PAIN IN ABDOMEN COMPARISON: Abdomen Pelvis Scan dated 04/13/2016 FINDINGS: No aortic aneurysm. The liver has a homogeneous echotexture. The portal vein is patent. The IVC at the level of the liver is unremarkable. No ascites. The gallbladder is unremarkable. No pericholecystic fluid, wall thickening, or gallstones identified. Common bile duct not visualized. The pancreas was grossly unremarkable. The right kidney measures 9.2 cm normal echotexture. No hydronephrosis. No suspicious masses. The left kidney measures 8.4 cm with a normal echotexture. No hydronephrosis. No suspicious masses. The spleen is unremarkable. IMPRESSION: Nonvisualized common bile duct, otherwise unremarkable abdominal ultrasound.
--- NOTE | 2023-04-18 19:41 | RAD REPORT ---
EXAM DESCRIPTION: US - Urinary Bladder - 04/18/2023 7:26 pm CLINICAL HISTORY: RETENTION OF URINE. COMPARISON: BREAST/AXILLA, LIMITED dated 11/13/2016 FINDINGS: No gross abnormalities of the bladder identified. Pre-void bladder volume: 395 cc mL Post-void resdiual volume: Unable to be assessed as the patient has bladder catheter . IMPRESSION: Grossly unremarkable appearance of the bladder. Unable to assess for urinary retention a s the patient uses a catheter to evacuate bladder.
[2023-04-18] MEDS: MELATONIN 3 MG TABLET PO SCH (21:50)
[2023-04-19] MEDS: ZIPRASIDONE MESYLA 20 MG/VIAL IM PRN (01:14)
[2023-04-19] MEDS: WATER FOR INJ,STERILE 10 ML IM PRN (01:15)
[2023-04-19] MEDS: NA CHLORIDE 0.9% 1,000 ML IV SCH ×2 (02:24→12:07)
[2023-04-19 04:45] LABS: Absolute Lymphocytes (CBC) 0.8 K/uL (0.7-4.9); Hematocrit 26.7 % (36.0-45.0); MCV 97.3 fL (80-100); MPV 7.1 fL (7.6-11.3); RBC Red Blood Cell Count 2.74 M/uL (3.86-4.86)
[2023-04-19 04:57] LABS: Potassium 5.1 mEq/L (3.5-5.1)
[2023-04-19 05:24] LABS: Blood Morphology Comment NOT SEEN (NOT SEEN); Platelet Estimate ADEQ
[2023-04-19] MEDS: LEVOTHYROXINE SOD 0.05 MG TABLET PO SCH (06:46)
[2023-04-19] MEDS: Meropenem 1,000 MG in NA CHLORIDE 0.9% 100 ML IV SCH ×2 (09:00→21:39)
[2023-04-19] MEDS: ESCITALOPRAM 20 MG TAB PO SCH (09:59)
[2023-04-19] MEDS: carvediloL 25 MG TAB PO SCH ×2 (10:00→21:00)
[2023-04-19] MEDS: cloNIDine HCL 0.1 MG TAB PO SCH ×3 (10:00→21:00)
[2023-04-19] MEDS: HYDRALAZINE HCL 25 MG TABLET PO SCH ×3 (10:00→21:00)
[2023-04-19] MEDS: ALBUTEROL 2.5 MG/3 ML NEB SOL NEB SCH ×3 (10:00→20:00)
[2023-04-19] MEDS: ENOXAPARIN 40 MG/0.4 ML SQ SCH (10:01)
[2023-04-19] MEDS: MELATONIN 3 MG TABLET PO SCH (21:38)
[2023-04-20] MEDS: ALBUTEROL 2.5 MG/3 ML NEB SOL NEB SCH ×4 (02:00→20:45)
[2023-04-20] MEDS: NA CHLORIDE 0.9% 1,000 ML IV SCH ×2 (03:35→20:54)
[2023-04-20 04:56] LABS: Absolute Lymphocytes (CBC) 1.2 K/uL (0.7-4.9); Hematocrit 29.4 % (36.0-45.0); Lymphocytes % 7.9 % (15.3-44.8); MCV 96.9 fL (80-100); MPV 7.2 fL (7.6-11.3); RBC Red Blood Cell Count 3.03 M/uL (3.86-4.86)
[2023-04-20 05:04] LABS: Potassium 5.2 mEq/L (3.5-5.1)
[2023-04-20] MEDS: LEVOTHYROXINE SOD 0.05 MG TABLET PO SCH (06:18)
[2023-04-20] MEDS: ESCITALOPRAM 20 MG TAB PO SCH (08:16)
[2023-04-20] MEDS: carvediloL 25 MG TAB PO SCH ×2 (08:17→20:45)
[2023-04-20] MEDS: Meropenem 1,000 MG in NA CHLORIDE 0.9% 100 ML IV SCH ×2 (08:18→20:46)
[2023-04-20] MEDS: ENOXAPARIN 30 MG/0.3 ML SQ SCH (08:18)
[2023-04-20] MEDS: HYDRALAZINE HCL 25 MG TABLET PO SCH ×3 (08:22→20:45)
[2023-04-20] MEDS: cloNIDine HCL 0.1 MG TAB PO SCH ×3 (09:00→21:13)
[2023-04-20 10:25] LABS: Arterial Blood Carboxyhemoglob 1.2 % (0-1.5); Blood Gas Oxyhemoglobin 95.3 % (94-97); Blood O2 Saturation 97.9 % (92-98.5)
[2023-04-20] MEDS: MELATONIN 3 MG TABLET PO SCH (20:45)
[2023-04-20] MEDS: ENSURE ENLIVE 237 ML CAN PO SCH (20:47)
--- NOTE | 2023-04-20 21:40 | P.PN ---
Subjective Date of Service: 04/19/23 Chief Complaint: LOT BETTER Subjective: Improving SHE IS STABLE. SHE WAS SENT TO ICU FOR HYPERTONIC SALINE FOR HYPONATREMAI SHE IS FULLY AWAKE NOW AND ATE GOOD TODAY WHEEZING TODAY. STARTED ALBUTEROL. Review of Systems 10-point ROS is otherwise unremarkable General: Weakness Physical Examination - Vital Signs Temperature: 98 F Blood Pressure: 163/79 Pulse: 89 Respirations: 16 Pulse Ox (%): 98 - Physical Exam General: Oriented x1, Mild distress HEENT: Atraumatic, PERRLA, EOMI Neck: Supple, JVD not distended Respiratory: Diminished, Rhonchi/gurgles Cardiovascular: Regular rate/rhythm, Normal S1 S2 Gastrointestinal: Normal bowel sounds, No tenderness Musculoskeletal: No tenderness Integumentary: No rashes Neurological: Normal speech, Normal tone, Normal affect Lymphatics: No axilla or inguinal lymphadenopathy - Studies Medications List Reviewed: Yes Assessment And Plan - Current Problems (Diagnosis) (1) UTI (urinary tract infection) Current Visit: Yes Status: Acute Plan: IV ABX. CEFEPIME. CULTURE PENDING CONSULT PT VERY WEAK. MAY BE ABLE TO GO TO ASSISTED LIVING. E COLI SENSITIVE TO AUGMENTIN CHANGE ABX AT DC TO ORAL. (2) Alzheimer disease Current Visit: Yes Status: Acute (3) Hyponatremia Current Visit: Yes Status: Acute Plan: IMPROVED FROM 117 TO 125 AFTER HYPERTONIC SALINE ETIOLOGY LOOKS LIKE MULTIFACTORIAL. OSM AND SODIUM SHOW SIADH PICTURE BUT NOW SHE SHOWS SIGNS OF DEHYDRATION ON LAB REPORTS. STOP 3% SALINE AND CHANGE TO NS. DAILY LAB. (4) Debilitated Current Visit: Yes Status: Chronic Plan: START OT AND PT. CONTINUE AT . NEEDS PT TO SNF. (5) Aspiration into airway Current Visit: Yes Status: Acute Plan: THIS IS POSSIBLE REASON FOR WHEEZING SHE HAS DEMENTIA. CXR NEG FOR PNEUMONIA CT WILL BE MORE ACCURATE BUT WILL AVOID FOR NOW ABDOMEN FINDINGS DO NOT CORRELATE TO CLINICAL FINDINGS. ABDOMEN IS NON ACUTE. CHANGE ABX TO [facility] DAILY (6) Dehydration Current Visit: Yes Status: Acute Plan: BUN CREAT RISING CHECK SONOGRAM CHECK PVR CONT IV FLUIDS. CLINICALLLY SHE IS MILDLY DEHYDRATED. CREAT COMING DOWN.
--- NOTE | 2023-04-20 21:43 | P.PN ---
Subjective Date of Service: 04/20/23 Chief Complaint: LOT BETTER Subjective: Improving SHE IS STABLE. NO MORE WHEEZES TODAY SHE IS DISCHARGED FROM ICU TWO DAYS AGO BUT THERE ARE NO BEDS AVAILABLE IN ACUTE FLOOR.. Review of Systems 10-point ROS is otherwise unremarkable General: Weakness, Malaise Physical Examination - Vital Signs Temperature: 98 F Blood Pressure: 163/79 Pulse: 89 Respirations: 16 Pulse Ox (%): 98 - Physical Exam General: Oriented x3, Mild distress HEENT: Atraumatic, PERRLA, EOMI Neck: Supple, JVD not distended Respiratory: Clear to auscultation bilaterally, Normal air movement Cardiovascular: Regular rate/rhythm, Normal S1 S2 Gastrointestinal: Normal bowel sounds, No tenderness Musculoskeletal: No tenderness Integumentary: No rashes Neurological: Normal speech, Normal tone, Normal affect Lymphatics: No axilla or inguinal lymphadenopathy - Studies Medications List Reviewed: Yes Assessment And Plan - Current Problems (Diagnosis) (1) UTI (urinary tract infection) Current Visit: Yes Status: Acute Plan: IV ABX. CEFEPIME. CULTURE PENDING CONSULT PT VERY WEAK. MAY BE ABLE TO GO TO ASSISTED LIVING. E COLI SENSITIVE TO AUGMENTIN CHANGE ABX AT DC TO ORAL. (2) Alzheimer disease Current Visit: Yes Status: Acute (3) Hyponatremia Current Visit: Yes Status: Acute Plan: IMPROVED FROM 117 TO 125 AFTER HYPERTONIC SALINE ETIOLOGY LOOKS LIKE MULTIFACTORIAL. OSM AND SODIUM SHOW SIADH PICTURE BUT NOW SHE SHOWS SIGNS OF DEHYDRATION ON LAB REPORTS. STOP 3% SALINE AND CHANGE TO NS. DAILY LAB. (4) Debilitated Current Visit: Yes Status: Chronic Plan: START OT AND PT. CONTINUE AT . NEEDS PT TO SNF. (5) Aspiration into airway Current Visit: Yes Status: Acute Plan: THIS IS POSSIBLE REASON FOR WHEEZING SHE HAS DEMENTIA. CXR NEG FOR PNEUMONIA CT WILL BE MORE ACCURATE BUT WILL AVOID FOR NOW ABDOMEN FINDINGS DO NOT CORRELATE TO CLINICAL FINDINGS. ABDOMEN IS NON ACUTE. CHANGE ABX TO [facility] DAILY (6) Dehydration Current Visit: Yes Status: Acute Plan: BUN CREAT RISING CHECK SONOGRAM CHECK PVR CONT IV FLUIDS. CLINICALLLY SHE IS MILDLY DEHYDRATED. CREAT COMING DOWN. (7) Bronchitis Current Visit: Yes Status: Acute Plan: IMPROVED ON NEBS. (8) Metabolic acidosis with respiratory alkalosis Current Visit: Yes Status: Acute Plan: GENTLE IV BICARB DRIP DAILY LAB. ETIOLOGY COULD BE LACTIC ACIDOSIS FROM INFECTION.
[2023-04-20] MEDS: NACHLORIDE 0.45% 1,000 ML with NA BICARB 8.4% 50 MEQ IV SCH ×2 (22:35)
[2023-04-20] MEDS ORDERED: SODIUM BICARB 50 MEQ/50ML VIAL ONE (22:38)
[2023-04-20] MEDS ORDERED: NACHLORIDE 0.45% 1,000 ML IV ONE (22:38)
[2023-04-21] MEDS: ALBUTEROL 2.5 MG/3 ML NEB SOL NEB SCH ×4 (01:45→20:45)
[2023-04-21 05:40] LABS: Potassium 5.1 mEq/L (3.5-5.1)
[2023-04-21 05:50] LABS: Absolute Lymphocytes (CBC) 1.6 K/uL (0.7-4.9); Hematocrit 25.8 % (36.0-45.0); Lymphocytes % 13.6 % (15.3-44.8); MCV 97.6 fL (80-100); MPV 7.4 fL (7.6-11.3); RBC Red Blood Cell Count 2.64 M/uL (3.86-4.86)
[2023-04-21] MEDS: LEVOTHYROXINE SOD 0.05 MG TABLET PO SCH (05:58)
[2023-04-21] MEDS: carvediloL 25 MG TAB PO SCH ×2 (08:24→21:17)
[2023-04-21] MEDS: HYDRALAZINE HCL 25 MG TABLET PO SCH ×3 (08:24→21:00)
[2023-04-21] MEDS: ESCITALOPRAM 20 MG TAB PO SCH (08:25)
[2023-04-21] MEDS: ENSURE ENLIVE 237 ML CAN PO SCH ×2 (08:27→21:16)
[2023-04-21] MEDS: ENOXAPARIN 30 MG/0.3 ML SQ SCH (08:37)
[2023-04-21] MEDS: cloNIDine HCL 0.1 MG TAB PO SCH ×3 (08:37→21:00)
[2023-04-21] MEDS: NACHLORIDE 0.45% 1,000 ML with NA BICARB 8.4% 50 MEQ IV SCH ×2 (21:16)
[2023-04-21] MEDS: MELATONIN 3 MG TABLET PO SCH (21:17)
--- NOTE | 2023-04-21 21:22 | P.PN ---
Subjective Date of Service: 04/21/23 Chief Complaint: LOT BETTER Subjective: Improving SHE IS STABLE. NO MORE WHEEZES TODAY SHE IS DISCHARGED FROM ICU TWO DAYS AGO BUT THERE ARE NO BEDS AVAILABLE IN ACUTE FLOOR.. SHE IS STILL VERY CONFUSED AND NOT DIFF FROM HOME. SHE KNOWS ME WELL. Review of Systems 10-point ROS is otherwise unremarkable General: Weakness Physical Examination - Vital Signs Temperature: 96.7 F Blood Pressure: 115/48 Pulse: 83 Respirations: 20 Pulse Ox (%): 98 - Physical Exam General: Oriented x1, Mild distress HEENT: Atraumatic, PERRLA, EOMI Neck: Supple, JVD not distended Respiratory: Clear to auscultation bilaterally, Normal air movement Cardiovascular: Regular rate/rhythm, Normal S1 S2 Gastrointestinal: Normal bowel sounds, No tenderness Musculoskeletal: No tenderness Integumentary: No rashes Neurological: Normal speech, Normal tone, Normal affect Lymphatics: No axilla or inguinal lymphadenopathy - Studies Medications List Reviewed: Yes Assessment And Plan - Current Problems (Diagnosis) (1) UTI (urinary tract infection) Current Visit: Yes Status: Acute Plan: IV ABX. CEFEPIME. CULTURE PENDING CONSULT PT VERY WEAK. MAY BE ABLE TO GO TO ASSISTED LIVING. E COLI SENSITIVE TO AUGMENTIN CHANGE ABX AT DC TO ORAL. (2) Alzheimer disease Current Visit: Yes Status: Acute (3) Hyponatremia Current Visit: Yes Status: Acute Plan: IMPROVED FROM 117 TO 125 AFTER HYPERTONIC SALINE ETIOLOGY LOOKS LIKE MULTIFACTORIAL. OSM AND SODIUM SHOW SIADH PICTURE BUT NOW SHE SHOWS SIGNS OF DEHYDRATION ON LAB REPORTS. STOP 3% SALINE AND CHANGE TO NS. DAILY LAB. RESOLVED DEHYDRATION RESOLVED. REDUCE HYDRATION RATE. (4) Debilitated Current Visit: Yes Status: Chronic Plan: START OT AND PT. CONTINUE AT CI. NEEDS PT TO SNF. (5) Aspiration into airway Current Visit: Yes Status: Acute Plan: THIS IS POSSIBLE REASON FOR WHEEZING SHE HAS DEMENTIA. CXR NEG FOR PNEUMONIA CT WILL BE MORE ACCURATE BUT WILL AVOID FOR NOW ABDOMEN FINDINGS DO NOT CORRELATE TO CLINICAL FINDINGS. ABDOMEN IS NON ACUTE. CHANGE ABX TO [facility] DAILY (6) Dehydration Current Visit: Yes Status: Acute Plan: BUN CREAT RISING CHECK SONOGRAM CHECK PVR CONT IV FLUIDS. CLINICALLLY SHE IS MILDLY DEHYDRATED. CREAT COMING DOWN. (7) Bronchitis Current Visit: Yes Status: Acute Plan: IMPROVED ON NEBS. (8) Metabolic acidosis with respiratory alkalosis Current Visit: Yes Status: Acute Plan: GENTLE IV BICARB DRIP DAILY LAB. ETIOLOGY COULD BE LACTIC ACIDOSIS FROM INFECTION.
[2023-04-22] MEDS: ALBUTEROL 2.5 MG/3 ML NEB SOL NEB SCH ×4 (03:00→19:15)
[2023-04-22 05:17] LABS: Absolute Lymphocytes (CBC) 1.7 K/uL (0.7-4.9); Hematocrit 26.5 % (36.0-45.0); Lymphocytes % 13.3 % (15.3-44.8); MCV 97.5 fL (80-100); MPV 7.1 fL (7.6-11.3); RBC Red Blood Cell Count 2.71 M/uL (3.86-4.86)
[2023-04-22 05:28] LABS: Potassium 4.9 mEq/L (3.5-5.1)
[2023-04-22] MEDS: ESCITALOPRAM 20 MG TAB PO SCH (10:28)
[2023-04-22] MEDS: cloNIDine HCL 0.1 MG TAB PO SCH ×3 (10:28→20:21)
[2023-04-22] MEDS: HYDRALAZINE HCL 25 MG TABLET PO SCH ×3 (10:28→20:20)
[2023-04-22] MEDS: ENOXAPARIN 40 MG/0.4 ML SQ SCH (10:28)
[2023-04-22] MEDS: carvediloL 25 MG TAB PO SCH ×2 (10:29→20:21)
[2023-04-22] MEDS: LEVOTHYROXINE SOD 0.05 MG TABLET PO SCH (10:29)
[2023-04-22] MEDS: ENSURE ENLIVE 237 ML CAN PO SCH ×2 (14:24→20:21)
[2023-04-22] MEDS ORDERED: ALBUTEROL 2.5 MG/3 ML NEB SOL ONE (14:44)
[2023-04-22] MEDS: NACHLORIDE 0.45% 1,000 ML with NA BICARB 8.4% 50 MEQ IV SCH ×2 (16:09)
[2023-04-22] MEDS: MELATONIN 3 MG TABLET PO SCH (20:21)
--- NOTE | 2023-04-22 21:19 | P.PN ---
Subjective Date of Service: 04/22/23 Chief Complaint: LOT BETTER Subjective: No C/O voiced SHE IS STABLE. SHE IS CONFUSED BEFORE WEAK NOW MOVED TO FLOOR TODAY. Physical Examination - Vital Signs Temperature: 97.1 F Blood Pressure: 114/57 Pulse: 75 Respirations: 17 Pulse Ox (%): 97 - Physical Exam General: Oriented x1, Mild distress HEENT: Atraumatic, PERRLA, EOMI Neck: Supple, JVD not distended Respiratory: Clear to auscultation bilaterally, Normal air movement Cardiovascular: Regular rate/rhythm, Normal S1 S2 Gastrointestinal: Normal bowel sounds, No tenderness Musculoskeletal: No tenderness Integumentary: No rashes Neurological: Normal speech, Normal tone, Normal affect Lymphatics: No axilla or inguinal lymphadenopathy - Studies Medications List Reviewed: Yes Assessment And Plan - Current Problems (Diagnosis) (1) UTI (urinary tract infection) Current Visit: Yes Status: Acute Plan: REDO UA AND CS WBC WENT HIGHER AGAIN (2) Alzheimer disease Current Visit: Yes Status: Chronic (3) Hyponatremia Current Visit: Yes Status: Acute Plan: IMPROVED FROM 117 TO 125 AFTER HYPERTONIC SALINE ETIOLOGY LOOKS LIKE MULTIFACTORIAL. OSM AND SODIUM SHOW SIADH PICTURE BUT NOW SHE SHOWS SIGNS OF DEHYDRATION ON LAB REPORTS. STOP 3% SALINE AND CHANGE TO NS. DAILY LAB. RESOLVED DEHYDRATION RESOLVED. REDUCE HYDRATION RATE. CHECK DAILY. (4) Debilitated Current Visit: Yes Status: Chronic Plan: START OT AND PT. CONTINUE AT CI. NEEDS PT TO SNF. (5) Aspiration into airway Current Visit: Yes Status: Acute Plan: THIS IS POSSIBLE REASON FOR WHEEZING SHE HAS DEMENTIA. CXR NEG FOR PNEUMONIA CT WILL BE MORE ACCURATE BUT WILL AVOID FOR NOW ABDOMEN FINDINGS DO NOT CORRELATE TO CLINICAL FINDINGS. ABDOMEN IS NON ACUTE. CHANGE ABX TO [facility] DAILY (6) Dehydration Current Visit: Yes Status: Acute Plan: BUN CREAT RISING CHECK SONOGRAM CHECK PVR CONT IV FLUIDS. CLINICALLLY SHE IS MILDLY DEHYDRATED. CREAT COMING DOWN. (7) Bronchitis Current Visit: Yes Status: Acute Plan: IMPROVED ON NEBS. (8) Metabolic acidosis with respiratory alkalosis Current Visit: Yes Status: Acute Plan: GENTLE IV BICARB DRIP DAILY LAB. ETIOLOGY COULD BE LACTIC ACIDOSIS FROM INFECTION.
[2023-04-23] MEDS: ALBUTEROL 2.5 MG/3 ML NEB SOL NEB SCH ×3 (02:15→14:00)
[2023-04-23 04:26] VITALS: TEMP 96.8
[2023-04-23] MEDS: LEVOTHYROXINE SOD 0.05 MG TABLET PO SCH (07:51)
[2023-04-23 08:52] LABS: Specific Gravity 1.013 (1.005-1.030); Urine Bilirubin NEGATIVE (Negative); Urine Blood 2+ (Negative); Urine Clarity Clear (Clear); Urine Color Light-Yellow (Yellow); Urine Glucose NEGATIVE (Negative); Urine Protein TRACE (Negative); Urine Urobilinogen Normal (Normal); Urine pH 5.5 (5.0-7.0)
[2023-04-23 08:53] LABS: Urine Bacteria None Seen /HPF (<20); Urine Mucus Slight /HPF (None Seen); Urine RBC 21-50 /HPF (None Seen)
[2023-04-23] MEDS: carvediloL 25 MG TAB PO SCH (09:20)
[2023-04-23] MEDS: ESCITALOPRAM 20 MG TAB PO SCH (09:20)
[2023-04-23] MEDS: cloNIDine HCL 0.1 MG TAB PO SCH (09:21)
[2023-04-23] MEDS: HYDRALAZINE HCL 25 MG TABLET PO SCH (09:21)
[2023-04-23] MEDS: ENOXAPARIN 40 MG/0.4 ML SQ SCH (09:21)
[2023-04-23 09:22] VITALS: BP 136/68
[2023-04-23] MEDS: ENSURE ENLIVE 237 ML CAN PO SCH (09:22)
[2023-04-23] MEDS: NACHLORIDE 0.45% 1,000 ML with NA BICARB 8.4% 50 MEQ IV SCH ×2 (11:19)
[2023-04-23] MEDS ORDERED: TAMSULOSIN 0.4 MG SR CAP PO ONE (13:04)
--- NOTE | 2023-04-23 16:04 | P.DS ---
Admission Date: 04/13/23 Discharge Date: 04/23/23 Disposition: TRANSFER TO RESIDENTIAL Reason for Admission: LOT BETTER - Problems (1) UTI (urinary tract infection) Status: Acute (2) Alzheimer disease Status: Chronic (3) Hyponatremia Status: Acute (4) Debilitated Status: Chronic (5) Aspiration into airway Status: Acute (6) Dehydration Status: Acute (7) Bronchitis Status: Acute (8) Metabolic acidosis with respiratory alkalosis Status: Acute Brief History of Present Illness: HERRERA HAS MORE CONFUSION AND WEAKNESS. SHE HAS UTI PER ER TESTING. SHE FELL AT [facility]. SHE IS CONFUSED AT BASELINE. Hospital Course: HERRERA IS PATIENT WITH DEMENTIA WHO COMES WITH MORE CONFUSION AND WEAKNESS. SHE HAD UTI ADN HUPONATREMIA. FOR UI SHE GOT [facility] OTHER ANTIBIOTICS WERE NOT EFFETIVE PER CULTURE. SODIUM NEEDED IV 3% SALINE FOR A FEW HOURS OTHER THERAPY DID NOT WORK. SHE IS CLINICALLY DEHYRATED AND IV NS DID NOT TAKE CARE OF SODIUM. ACTH STIM TEST IS NEGATIVE. Vital Signs/Physical Exam: Temp Pulse Resp BP Pulse Ox 96.8 F 72 17 136/68 96 04/23/23 04:00 04/23/23 09:21 04/23/23 04:00 04/23/23 09:21 04/23/23 04:00 General: Oriented x1, Mild distress HEENT: Atraumatic, PERRLA, EOMI Neck: Supple, JVD not distended Respiratory: Clear to auscultation bilaterally, Normal air movement Cardiovascular: Regular rate/rhythm, Normal S1 S2 Gastrointestinal: Normal bowel sounds, No tenderness Musculoskeletal: No tenderness Integumentary: No rashes Neurological: Normal speech, Normal tone, Normal affect Lymphatics: No axilla or inguinal lymphadenopathy Laboratory Data at Discharge: WBC 13.20 thou/uL (4.3-10.9) H 04/22/23 04:51 Hgb 9.0 g/dL (12.0-15.0) L 04/22/23 04:51 Hct 26.5 % (36.0-45.0) L 04/22/23 04:51 Plt Count 363 thou/uL (152-406) 04/22/23 04:51 PT 11.5 SECONDS (9.5-12.5) 04/12/23 23:03 INR 1.05 04/12/23 23:03 Sodium 128 mEq/L (136-145) L 04/22/23 04:51 Potassium 4.9 mEq/L (3.5-5.1) 04/22/23 04:51 BUN 43 mg/dL (7-18) H 04/22/23 04:51 Creatinine 0.77 mg/dL (0.55-1.02) 04/22/23 04:51 Glucose 116 mg/dL (74-106) H 04/22/23 04:51 Total Bilirubin 0.4 mg/dL (0.2-1.0) 04/12/23 23:03 AST 14 U/L (15-37) L 04/12/23 23:03 ALT 23 U/L (13-56) 04/12/23 23:03 Alkaline Phosphatase 58 U/L (45-117) 04/12/23 23:03 Home Medications: Carvedilol [Coreg] 25 mg PO BID 09/29/22 Levothyroxine Sodium 50 mcg PO DAILY 09/29/22 Spironolactone 50 mg PO DAILY 09/29/22 Escitalopram Oxalate 10 mg PO DAILY 04/13/23 Melatonin 3 mg PO BEDTIME 04/13/23 Carvedilol [Coreg] 25 mg PO BID #60 04/23/23 Escitalopram Oxalate [Lexapro] 10 mg PO DAILY #30 04/23/23 Hydralazine HCl [Apresoline] 50 mg PO TID #90 04/23/23 Levothyroxine Sodium [Synthroid] 0.05 mg PO DAILY #30 04/23/23 Melatonin 3 mg PO BEDTIME #30 04/23/23 Tamsulosin HCl [Flomax] 0.4 mg PO DAILY #30 04/23/23 cloNIDine HCL [Catapres] 0.1 mg PO TID #90 tab 04/23/23 New Medications: Hydralazine HCl [Apresoline] 50 mg PO TID #90 cloNIDine HCL [Catapres] 0.1 mg PO TID #90 tab Carvedilol [Coreg] 25 mg PO BID #60 Tamsulosin HCl [Flomax] 0.4 mg PO DAILY #30 Escitalopram Oxalate [Lexapro] 10 mg PO DAILY #30 Melatonin 3 mg PO BEDTIME #30 Levothyroxine Sodium [Synthroid] 0.05 mg PO DAILY #30 Followup: Scott Ho MD [Primary Care Provider] -
[2023-04-23 16:35] VITALS: O2SAT 93
== END 2023-04-23 15:17 | DRG 690 ==
LOC: ER 22:56 → ERHOLD 04-13 01:42 → 2ND 04-13 01:47 → 3RD-ICU 04-17 23:19 → 2ND 04-22 14:47
PROVIDERS: ADMIT Internal Medicine; ATTEND Internal Medicine
PROC: 02HV33Z Insertion of Infusion Device into Superior Vena Cava, Percutaneous Approach (ICD-10-PCS; principal; 2023-04-18)
DX: N39.0 Urinary tract infection, site not specified (principal); E87.1 Hypo-osmolality and hyponatremia; E87.4 Mixed disorder of acid-base balance; I10 Essential (primary) hypertension; E86.0 Dehydration; E03.9 Hypothyroidism, unspecified; J20.9 Acute bronchitis, unspecified; G47.00 Insomnia, unspecified; G30.9 Alzheimer's disease, unspecified; F02.80 Dementia in other diseases classified elsewhere, unspecified severity, without behavioral disturbance, psychotic disturbance, mood disturbance, and anxiety; B96.20 Unspecified Escherichia coli [E. coli] as the cause of diseases classified elsewhere; Z95.5 Presence of coronary angioplasty implant and graft; Z79.02 Long term (current) use of antithrombotics/antiplatelets; Z79.890 Hormone replacement therapy; Z79.899 Other long term (current) drug therapy
CPT/HCPCS: 36415; 36569; 36600; 51702; 70450; 71045; 76700; 76857; 80048; 80053; 81001; 82024; 82533; 82570; 82805; 82947; 83605; 83930; 83935; 84300; 84443; 84484; 85025; 85610; 87040; 87077; 87086; 87088; 87186; 93005; 94640; 96374; 97110; 97116; 97161; 97530; 99285; J0692; J0834; J1650; J2185; J2405; J2920; J3486; J7030; J7040; J7131; J7613